=== PATIENT | female | born 1930 | race Caucasian/White ===

== ENCOUNTER 2016-07-29 12:59 | Outpatient (CLI) | payer MEDICARE, BC | END 2016-07-29 13:00 | disposition home or self-care (01) | DX: I48.91 Unspecified atrial fibrillation (principal); Z79.01 Long term (current) use of anticoagulants ==

== ENCOUNTER 2016-08-04 10:07 | Outpatient (CLI) | payer MEDICARE, BC | END 2016-08-04 10:08 | disposition home or self-care (01) | DX: C50.912 Malignant neoplasm of unspecified site of left female breast (principal) ==

== ENCOUNTER 2016-09-01 13:38 | Outpatient (CLI) | payer MEDICARE, BC | END 2016-09-01 13:39 | disposition home or self-care (01) | DX: Z79.01 Long term (current) use of anticoagulants (principal); I48.91 Unspecified atrial fibrillation ==

== ENCOUNTER 2016-09-16 11:13 | Outpatient (CLI) | payer MEDICARE, BC | END 2016-09-16 11:14 | disposition home or self-care (01) | DX: I48.91 Unspecified atrial fibrillation (principal); Z79.01 Long term (current) use of anticoagulants ==

== ENCOUNTER 2016-09-19 14:26 | Outpatient (CLI) | payer MEDICARE, BC | END 2016-09-19 14:27 | disposition home or self-care (01) | DX: R60.9 Edema, unspecified (principal) ==

== ENCOUNTER 2016-09-19 15:01 | Outpatient (CLI) | payer MEDICARE, BC | END 2016-09-19 15:02 | disposition home or self-care (01) | DX: R60.9 Edema, unspecified (principal) ==

== ENCOUNTER 2016-09-26 13:42 | Outpatient (CLI) | payer MEDICARE, BC | END 2016-09-26 13:43 | disposition home or self-care (01) | DX: M25.561 Pain in right knee (principal); R60.9 Edema, unspecified; Z96.651 Presence of right artificial knee joint ==

== ENCOUNTER 2016-10-06 11:26 | Outpatient (CLI) | payer MEDICARE, BC | END 2016-10-06 23:59 | DX: L03.115 Cellulitis of right lower limb (principal); L08.9 Local infection of the skin and subcutaneous tissue, unspecified; Z79.01 Long term (current) use of anticoagulants; E11.65 Type 2 diabetes mellitus with hyperglycemia; M25.561 Pain in right knee ==

== ENCOUNTER 2016-10-08 13:29 | Outpatient (CLI) | payer MEDICARE, BC | END 2016-10-08 13:30 | disposition home or self-care (01) | DX: I48.91 Unspecified atrial fibrillation (principal); Z79.01 Long term (current) use of anticoagulants ==

== ENCOUNTER 2016-10-13 08:00 | Outpatient (CLI) | payer MEDICARE, BC | END 2016-10-13 23:59 | DX: Z79.01 Long term (current) use of anticoagulants (principal); I48.91 Unspecified atrial fibrillation ==

== ENCOUNTER 2016-10-16 10:34 | Outpatient (CLI) | payer MEDICARE, BC | END 2016-10-16 10:35 | disposition home or self-care (01) | DX: M19.071 Primary osteoarthritis, right ankle and foot (principal); M21.41 Flat foot [pes planus] (acquired), right foot; M14.671 Charcot's joint, right ankle and foot; Z96.651 Presence of right artificial knee joint; M25.561 Pain in right knee; Z79.01 Long term (current) use of anticoagulants; I48.91 Unspecified atrial fibrillation ==

== ENCOUNTER 2016-10-16 11:13 | Outpatient (CLI) | payer MEDICARE, BC | END 2016-10-16 11:14 | disposition home or self-care (01) | DX: M25.561 Pain in right knee (principal); M14.671 Charcot's joint, right ankle and foot; Z79.01 Long term (current) use of anticoagulants; Z96.651 Presence of right artificial knee joint; I48.91 Unspecified atrial fibrillation ==

== ENCOUNTER 2016-10-22 13:21 | Outpatient (CLI) | payer MEDICARE, BC | END 2016-10-22 13:22 | disposition home or self-care (01) | DX: I48.91 Unspecified atrial fibrillation (principal); Z79.01 Long term (current) use of anticoagulants ==

== ENCOUNTER 2016-10-29 12:49 | Outpatient (CLI) | payer MEDICARE, BC | END 2016-10-29 12:50 | disposition home or self-care (01) | DX: Z79.01 Long term (current) use of anticoagulants (principal); I48.91 Unspecified atrial fibrillation ==

== ENCOUNTER 2016-11-19 08:00 | Outpatient (CLI) | payer MEDICARE, BC | END 2016-11-19 08:01 | disposition home or self-care (01) | DX: Z79.01 Long term (current) use of anticoagulants (principal); I48.91 Unspecified atrial fibrillation ==

== ENCOUNTER 2016-11-26 13:30 | Outpatient (CLI) | payer MEDICARE, BC | END 2016-11-26 13:31 | disposition home or self-care (01) | DX: I48.91 Unspecified atrial fibrillation (principal); Z79.01 Long term (current) use of anticoagulants ==

== ENCOUNTER 2016-12-03 13:15 | Outpatient (CLI) | payer MEDICARE, BC | END 2016-12-03 13:16 | disposition home or self-care (01) | LOC: LAB.F 13:15 | PROVIDERS: ATTEND Family Medicine | DX: I48.91 Unspecified atrial fibrillation (principal); Z79.01 Long term (current) use of anticoagulants | CPT/HCPCS: 85610 ==

== ENCOUNTER 2016-12-17 13:38 | Outpatient (CLI) | payer MEDICARE, BC | END 2016-12-17 13:39 | disposition home or self-care (01) | LOC: LAB.F 13:38 | PROVIDERS: ATTEND Family Medicine | DX: I48.91 Unspecified atrial fibrillation (principal); Z79.01 Long term (current) use of anticoagulants | CPT/HCPCS: 85610 ==

== ENCOUNTER 2017-01-19 11:10 | Outpatient (CLI) | payer MEDICARE, BC | END 2017-01-19 11:11 | disposition home or self-care (01) | LOC: LAB.F 11:10 | PROVIDERS: ATTEND Family Medicine | DX: I48.91 Unspecified atrial fibrillation (principal); Z79.01 Long term (current) use of anticoagulants | CPT/HCPCS: 85610 ==

== ENCOUNTER 2017-02-02 11:21 | Outpatient (CLI) | payer MEDICARE, BC | END 2017-02-02 11:22 | disposition home or self-care (01) | LOC: LAB.F 11:21 | PROVIDERS: ATTEND Family Medicine | DX: Z79.01 Long term (current) use of anticoagulants (principal) | CPT/HCPCS: 85610 ==

== ENCOUNTER 2017-02-09 12:51 | Outpatient (CLI) | payer MEDICARE, BC | END 2017-02-09 12:52 | disposition home or self-care (01) | LOC: LAB.F 12:51 | PROVIDERS: ATTEND Family Medicine | DX: I48.91 Unspecified atrial fibrillation (principal); Z79.01 Long term (current) use of anticoagulants | CPT/HCPCS: 85610 ==

== ENCOUNTER 2017-03-02 13:41 | Outpatient (CLI) | payer MEDICARE, BC | END 2017-03-02 13:42 | disposition home or self-care (01) | LOC: LAB 13:41 → LAB.F 13:42 | PROVIDERS: ATTEND Physician Assistant Medical | DX: I48.91 Unspecified atrial fibrillation (principal) | CPT/HCPCS: 85610 ==

== ENCOUNTER 2017-03-25 13:19 | Outpatient (CLI) | payer MEDICARE, BC | END 2017-03-25 13:20 | disposition home or self-care (01) | LOC: LAB.F 13:19 | PROVIDERS: ATTEND Physician Assistant Medical | DX: I48.91 Unspecified atrial fibrillation (principal) | CPT/HCPCS: 85610 ==

== ENCOUNTER 2017-04-08 12:44 | Outpatient (CLI) | payer MEDICARE, BC | END 2017-04-08 12:45 | disposition home or self-care (01) | LOC: LAB.F 12:44 | PROVIDERS: ATTEND Physician Assistant Medical | DX: I48.91 Unspecified atrial fibrillation (principal) | CPT/HCPCS: 85610 ==

== ENCOUNTER 2017-04-22 13:21 | Outpatient (CLI) | payer MEDICARE, BC | END 2017-04-22 13:22 | disposition home or self-care (01) | LOC: LAB.F 13:21 | PROVIDERS: ATTEND Physician Assistant Medical | DX: I48.91 Unspecified atrial fibrillation (principal) | CPT/HCPCS: 85610 ==

== ENCOUNTER 2017-05-06 13:16 | Outpatient (CLI) | payer MEDICARE, BC | END 2017-05-06 13:17 | disposition home or self-care (01) | LOC: LAB.F 13:16 | PROVIDERS: ATTEND Physician Assistant Medical | DX: I48.91 Unspecified atrial fibrillation (principal) | CPT/HCPCS: 85610 ==

== ENCOUNTER 2017-05-13 13:43 | Outpatient (CLI) | payer MEDICARE, BC | END 2017-05-13 13:44 | disposition home or self-care (01) | LOC: LAB.F 13:43 | PROVIDERS: ATTEND Family Medicine | DX: I48.91 Unspecified atrial fibrillation (principal) | CPT/HCPCS: 85610 ==

== ENCOUNTER 2017-05-18 10:10 | Outpatient (CLI) | payer MEDICARE, BC | END 2017-05-18 10:11 | disposition home or self-care (01) | LOC: LAB.F 10:10 | PROVIDERS: ATTEND Physician Assistant Medical | DX: I48.91 Unspecified atrial fibrillation (principal) | CPT/HCPCS: 85610 ==

== ENCOUNTER 2017-06-16 10:59 | Outpatient (CLI) | payer MEDICARE, BC | END 2017-06-16 11:00 | disposition home or self-care (01) | LOC: LAB.F 10:59 | PROVIDERS: ATTEND Physician Assistant Medical | DX: I48.91 Unspecified atrial fibrillation (principal) | CPT/HCPCS: 85610 ==

== ENCOUNTER 2017-08-17 10:49 | Outpatient (CLI) | payer MEDICARE, BC ==
--- NOTE | 2017-08-17 15:00 | Mammography Report ---
DATE OF SERVICE: 08/17/2017 DIGITAL DIAGNOSTIC BILATERAL MAMMOGRAM: 08/17/2017 CLINICAL INDICATION: History of left breast cancer status post lumpectomy and radiation therapy. TECHNIQUE: Bilateral CC and MLO views, left true lateral view. Views are limited by patient's general condition and difficulty with positioning. COMPARISON: 08/04/2016, 06/18/2015, 12/04/2014, 06/12/2014, 09/19/2013, 2012, 11/30/2006. FINDINGS: The breasts demonstrate scattered fibroglandular densities bilaterally. Postoperative seroma in the left upper outer quadrant is stable. Post- radiation changes are stable. No suspicious masses, clustered microcalcifications, or regions of architectural distortion are identified. IMPRESSION: BENIGN FINDINGS. RECOMMENDATION: The patient can return to routine annual screening unless otherwise clinically indicated. BIRADS CATEGORY 2 - BENIGN FINDINGS. STANDARD QUALIFYING STATEMENTS: 1. This examination was reviewed with the aid of Computer-Aided Detection (CAD) . 2. A negative or benign imaging report should not delay biopsy if clinically suspicious findings are present. Consider surgical consultation if warranted. More than 5 % of cancers are not identified by imaging. 3. Dense breasts may obscure an underlying neoplasm. TD: 08/17/2017 15:59 TREVER
== END 2017-08-17 10:50 | disposition home or self-care (01) ==
LOC: DI 10:49
PROVIDERS: ATTEND Internal Medicine Hematology & Oncology
DX: C50.912 Malignant neoplasm of unspecified site of left female breast (principal)
CPT/HCPCS: 77066

== ENCOUNTER 2017-08-26 13:06 | Outpatient (CLI) | payer MEDICARE, BC | END 2017-08-26 13:07 | disposition home or self-care (01) | LOC: LAB.F 13:06 | PROVIDERS: ATTEND Physician Assistant Medical | DX: I48.91 Unspecified atrial fibrillation (principal) | CPT/HCPCS: 85610 ==

== ENCOUNTER 2017-09-01 08:00 | Outpatient (CLI) | payer MEDICARE, BC | END 2017-09-01 08:01 | disposition home or self-care (01) | LOC: LAB.F 08:00 | PROVIDERS: ATTEND Physician Assistant Medical | DX: I48.91 Unspecified atrial fibrillation (principal) | CPT/HCPCS: 85610 ==

== ENCOUNTER 2017-09-28 13:49 | Outpatient (CLI) | payer MEDICARE, BC | END 2017-09-28 13:50 | disposition home or self-care (01) | LOC: LAB.F 13:49 | PROVIDERS: ATTEND Physician Assistant Medical | DX: I48.91 Unspecified atrial fibrillation (principal) | CPT/HCPCS: 85610 ==

== ENCOUNTER 2017-10-07 12:53 | Outpatient (CLI) | payer MEDICARE, BC | END 2017-10-07 12:54 | disposition home or self-care (01) | LOC: LAB.F 12:53 | PROVIDERS: ATTEND Physician Assistant Medical | DX: I48.91 Unspecified atrial fibrillation (principal) | CPT/HCPCS: 85610 ==

== ENCOUNTER 2017-10-21 13:16 | Outpatient (CLI) | payer MEDICARE, BC | END 2017-10-21 13:17 | disposition home or self-care (01) | LOC: LAB.F 13:16 | PROVIDERS: ATTEND Physician Assistant Medical | DX: I48.91 Unspecified atrial fibrillation (principal) | CPT/HCPCS: 85610 ==

== ENCOUNTER 2017-11-02 08:00 | Outpatient (CLI) | payer MEDICARE, BC | END 2017-11-02 08:01 | disposition home or self-care (01) | LOC: LAB.F 08:00 | PROVIDERS: ATTEND Physician Assistant Medical | DX: I48.91 Unspecified atrial fibrillation (principal) | CPT/HCPCS: 85610 ==

== ENCOUNTER 2017-11-27 13:47 | Outpatient (CLI) | payer MEDICARE, BC | END 2017-11-27 13:48 | disposition home or self-care (01) | LOC: LAB.F 13:47 | PROVIDERS: ATTEND Internal Medicine | DX: I48.91 Unspecified atrial fibrillation (principal) | CPT/HCPCS: 85610 ==

== ENCOUNTER 2017-12-10 08:44 | Outpatient (CLI) | payer MEDICARE, BC ==
[2017-12-10] MEDS ORDERED: IOPAMIDOL-300 50 ML VIAL ONE (09:00)
--- NOTE | 2017-12-10 13:07 | CT Report ---
CT ABDOMEN WITHOUT CONTRAST: 12/10/2017 CLINICAL INDICATION: Abdominal wall mass. TECHNIQUE: Axial CT images of the abdomen were obtained without intravenous contrast. COMPARISON: Diagnostic mammogram 08/17/2017. FINDINGS: Limited evaluation of the lung bases demonstrates a large hiatal hernia and dependent atelectasis. Postoperative seroma in the left breast appears unchanged. No abdominal wall hernia is identified. Cholelithiasis is present. An inferior vena cava filter is noted. Allowing for the lack of intravenous contrast enhancement, the liver, spleen, pancreas and kidneys appear unremarkable. The adrenal glands are unremarkable. No bowel dilatation, free gas, or free fluid is present. Osseous structures demonstrate degenerative changes. IMPRESSION: POSTOPERATIVE SEROMA IN THE LEFT BREAST. NO OTHER EVIDENT LUMP IS IDENTIFIED. CT DOSE REDUCTION STATEMENT In accordance with CT protocol optimization, one or more of the following dose reduction techniques were utilized for this exam: automated exposure control, adjustment of mA and/or KV based on patient size, or use of iterative reconstructive technique. TD: 12/10/2017 13:00
== END 2017-12-10 08:45 | disposition home or self-care (01) ==
LOC: DI 08:44
PROVIDERS: ATTEND Internal Medicine
DX: R22.2 Localized swelling, mass and lump, trunk (principal); N64.89 Other specified disorders of breast
CPT/HCPCS: 74150; Q9967

== ENCOUNTER 2017-12-25 11:01 | Outpatient (CLI) | payer MEDICARE, BC | END 2017-12-25 11:02 | disposition home or self-care (01) | LOC: LAB.F 11:01 | PROVIDERS: ATTEND Internal Medicine | DX: I48.91 Unspecified atrial fibrillation (principal) | CPT/HCPCS: 85610 ==

== ENCOUNTER 2018-01-06 12:12 | Outpatient (CLI) | payer MEDICARE, BC | END 2018-01-06 12:13 | disposition home or self-care (01) | LOC: LAB.F 12:12 | PROVIDERS: ATTEND Internal Medicine | DX: I48.91 Unspecified atrial fibrillation (principal) | CPT/HCPCS: 85610 ==

== ENCOUNTER 2018-02-03 12:56 | Outpatient (CLI) | payer MEDICARE, BC | END 2018-02-03 12:57 | disposition home or self-care (01) | LOC: LAB.F 12:56 | PROVIDERS: ATTEND Internal Medicine | DX: I48.91 Unspecified atrial fibrillation (principal) | CPT/HCPCS: 85610 ==

== ENCOUNTER 2018-02-15 12:30 | Outpatient (CLI) | payer MEDICARE, BC | END 2018-02-15 12:31 | disposition home or self-care (01) | LOC: LAB.F 12:30 | PROVIDERS: ATTEND Internal Medicine | DX: I48.91 Unspecified atrial fibrillation (principal) | CPT/HCPCS: 85610 ==

== ENCOUNTER 2018-03-16 13:55 | Outpatient (CLI) | payer MEDICARE, BC ==
[2018-03-16 17:21] LABS: BASOPHILS % (AUTO) 0.9 %; EOSINOPHILS # (AUTO) 0.1 10^3/uL (0.0-0.7); EOSINOPHILS % (AUTO) 1.4 %; HGB - HEMOGLOBIN 12.2 g/dL (12.0-16.0); LYMPHOCYTES % (AUTO) 23.3 %; MEAN CORPUSCULAR HEMOGLOBIN 28.9 pg (27.0-31.0); MEAN CORPUSCULAR HGB CONC 32.9 g/dL (32.0-36.0); MEAN CORPUSCULAR VOLUME 87.9 fL (81.0-99.0); MEAN PLATELET VOLUME 8.5 fL (7.9-10.8); MONOCYTES # (AUTO) 0.4 10^3/uL (0.0-1.0); MONOCYTES % (AUTO) 10.3 %; NEUTROPHILS # (AUTO) 2.8 10^3/uL (1.5-6.6); NEUTROPHILS % (AUTO) 64.1 %; PLT - PLATELET COUNT 176 10^3/uL (130-450); RED BLOOD COUNT 4.21 10^6/uL (4.20-5.40); RED CELL DISTRIBUTION WIDTH 15.6 % (12.0-15.0); WHITE BLOOD COUNT 4.4 x10^3/uL (4.8-10.8)
[2018-03-16 17:36] LABS: ALBUMIN 3.3 g/dL (3.2-5.5); ALBUMIN/GLOBULIN RATIO 0.9 (1.0-2.2); BILIRUBIN,TOTAL 0.8 mg/dL (0.2-1.0); CREATININE 0.7 mg/dL (0.4-1.0); TOTAL PROTEIN 6.9 g/dL (6.7-8.2)
== END 2018-03-16 13:56 | disposition home or self-care (01) ==
LOC: LAB.F 13:55
PROVIDERS: ATTEND Physician Assistant Medical
DX: I48.91 Unspecified atrial fibrillation (principal); I10 Essential (primary) hypertension
CPT/HCPCS: 36415; 80053; 85025; 85610

== ENCOUNTER 2018-03-24 13:06 | Outpatient (CLI) | payer MEDICARE, BC | END 2018-03-24 13:07 | disposition home or self-care (01) | LOC: LAB.F 13:06 | PROVIDERS: ATTEND Internal Medicine | DX: I48.91 Unspecified atrial fibrillation (principal) | CPT/HCPCS: 85610 ==

== ENCOUNTER 2018-03-31 12:47 | Outpatient (CLI) | payer MEDICARE, BC | END 2018-03-31 12:48 | disposition home or self-care (01) | LOC: LAB.F 12:47 | PROVIDERS: ATTEND Internal Medicine | DX: I48.91 Unspecified atrial fibrillation (principal) | CPT/HCPCS: 85610 ==

== ENCOUNTER 2018-04-21 13:19 | Outpatient (CLI) | payer MEDICARE, BC | END 2018-04-21 13:20 | disposition home or self-care (01) | LOC: LAB.F 13:19 | PROVIDERS: ATTEND Internal Medicine | DX: I48.91 Unspecified atrial fibrillation (principal) | CPT/HCPCS: 85610 ==

== ENCOUNTER 2018-05-14 12:51 | Outpatient (CLI) | payer MEDICARE, BC | END 2018-05-14 12:52 | disposition home or self-care (01) | LOC: DI 12:51 | PROVIDERS: ATTEND Physician Assistant Medical | DX: I48.91 Unspecified atrial fibrillation (principal); R01.1 Cardiac murmur, unspecified; I08.3 Combined rheumatic disorders of mitral, aortic and tricuspid valves | CPT/HCPCS: 93306 ==

== ENCOUNTER 2018-05-19 13:14 | Outpatient (CLI) | payer MEDICARE, BC | END 2018-05-19 13:15 | disposition home or self-care (01) | LOC: LAB.F 13:14 | PROVIDERS: ATTEND Internal Medicine | DX: I48.91 Unspecified atrial fibrillation (principal) | CPT/HCPCS: 85610 ==

== ENCOUNTER 2018-06-23 12:57 | Outpatient (CLI) | payer MEDICARE, BC | END 2018-06-23 12:58 | disposition home or self-care (01) | LOC: LAB.F 12:57 | PROVIDERS: ATTEND Internal Medicine | DX: I48.91 Unspecified atrial fibrillation (principal) | CPT/HCPCS: 85610 ==

== ENCOUNTER 2018-07-08 13:24 | Outpatient (CLI) | payer MEDICARE, BC | END 2018-07-08 13:25 | disposition home or self-care (01) | LOC: LAB.F 13:24 | PROVIDERS: ATTEND Internal Medicine | DX: I48.91 Unspecified atrial fibrillation (principal) | CPT/HCPCS: 85610 ==

== ENCOUNTER 2018-08-04 13:04 | Outpatient (CLI) | payer MEDICARE, BC | END 2018-08-04 13:05 | disposition home or self-care (01) | LOC: LAB.F 13:04 | PROVIDERS: ATTEND Internal Medicine | DX: I48.91 Unspecified atrial fibrillation (principal) | CPT/HCPCS: 85610 ==

== ENCOUNTER 2018-09-10 13:36 | Outpatient (CLI) | payer MEDICARE, BC | END 2018-09-10 13:37 | disposition home or self-care (01) | LOC: LAB.F 13:36 | PROVIDERS: ATTEND Internal Medicine | DX: I48.91 Unspecified atrial fibrillation (principal) | CPT/HCPCS: 85610 ==

== ENCOUNTER 2018-10-06 12:56 | Outpatient (CLI) | payer MEDICARE, BC | END 2018-10-06 12:57 | disposition home or self-care (01) | LOC: LAB.F 12:56 | PROVIDERS: ATTEND Internal Medicine | DX: I48.91 Unspecified atrial fibrillation (principal) | CPT/HCPCS: 85610 ==

== ENCOUNTER 2018-10-11 11:06 | Outpatient (CLI) | payer MEDICARE, BC | END 2018-10-11 11:07 | disposition home or self-care (01) | LOC: LAB.F 11:06 | PROVIDERS: ATTEND Internal Medicine | DX: I48.91 Unspecified atrial fibrillation (principal) | CPT/HCPCS: 85610 ==

== ENCOUNTER 2018-10-20 13:05 | Outpatient (CLI) | payer MEDICARE, BC | END 2018-10-20 13:06 | disposition home or self-care (01) | LOC: LAB.F 13:05 | PROVIDERS: ATTEND Internal Medicine | DX: I48.91 Unspecified atrial fibrillation (principal) | CPT/HCPCS: 85610 ==

== ENCOUNTER 2018-11-01 13:04 | Outpatient (CLI) | payer MEDICARE, BC | END 2018-11-01 13:05 | disposition home or self-care (01) | LOC: LAB.F 13:04 | PROVIDERS: ATTEND Internal Medicine | DX: I48.91 Unspecified atrial fibrillation (principal) | CPT/HCPCS: 85610 ==

== ENCOUNTER 2018-11-22 10:39 | Outpatient (CLI) | payer MEDICARE, BC, MEDICAID ==
--- NOTE | 2018-11-22 12:44 | Ultrasound Report ---
Reason: L BREAST CANCER Procedure Date: 11/22/2018 Accession Number: [id number] / [id number] Procedure: US - Breast Unilateral Limited CPT Code: FULL RESULT: EXAM: Breast Unilateral Limited DATE: 11/22/2018 11:40 AM CLINICAL HISTORY: History of L BREAST CANCER. Palpable left upper outer quadrant mass; previous mammogram demonstrates postoperative seroma in this location. COMPARISON: Mammogram 08/17/2017 TECHNIQUE: Real-time ultrasound examination was performed by the technologist of the left upper outer quadrant palpable abnormality with saved static images reviewed. Color Doppler was employed. FINDINGS: Corresponding to the palpable abnormality is a 6.9 x 4 x 6.8 cm complex uniform hypoechoic well-circumscribed collection in the left breast 1:00 position 8 cm from the nipple. Findings would be consistent with an organized seroma. IMPRESSION: Findings by ultrasound most consistent with a left breast upper outer quadrant seroma. RECOMMENDATION: Suggest follow-up now by bilateral diagnostic mammography. Patient's last mammogram was performed 15 months ago. BI-RADS CATEGORY: 2: BENIGN FINDINGS
== END 2018-11-22 10:40 | disposition home or self-care (01) ==
LOC: DI 10:39
PROVIDERS: ATTEND Internal Medicine Hematology & Oncology
DX: N63.21 Unspecified lump in the left breast, upper outer quadrant (principal)
CPT/HCPCS: 76642

== ENCOUNTER 2018-12-03 11:54 | Outpatient (CLI) | payer MEDICARE, MEDICAID | END 2018-12-03 11:55 | disposition home or self-care (01) | LOC: LAB.F 11:54 | PROVIDERS: ATTEND Internal Medicine | DX: I48.91 Unspecified atrial fibrillation (principal) | CPT/HCPCS: 85610 ==

== ENCOUNTER 2019-01-03 11:30 | Outpatient (CLI) | payer MEDICARE, MEDICAID, BC | END 2019-01-03 11:31 | disposition home or self-care (01) | LOC: LAB.F 11:30 | PROVIDERS: ATTEND Internal Medicine | DX: I48.91 Unspecified atrial fibrillation (principal) | CPT/HCPCS: 85610 ==

== ENCOUNTER 2019-01-13 08:00 | Outpatient (CLI) | payer MEDICARE, MEDICAID, BC | END 2019-01-13 23:59 | disposition home or self-care (01) | LOC: LAB.F 08:00 | PROVIDERS: ATTEND Internal Medicine | DX: I48.91 Unspecified atrial fibrillation (principal) | CPT/HCPCS: 85610 ==

== ENCOUNTER 2019-01-20 13:23 | Outpatient (CLI) | payer MEDICARE, BC, MEDICAID | END 2019-01-20 13:24 | disposition home or self-care (01) | LOC: LAB.F 13:23 | PROVIDERS: ATTEND Internal Medicine | DX: I48.91 Unspecified atrial fibrillation (principal) | CPT/HCPCS: 85610 ==

== ENCOUNTER 2019-01-28 11:32 | Outpatient (CLI) | payer MEDICARE, MEDICAID, BC | END 2019-01-28 11:33 | disposition home or self-care (01) | LOC: LAB.S 11:32 | PROVIDERS: ATTEND Internal Medicine | DX: I48.91 Unspecified atrial fibrillation (principal) | CPT/HCPCS: 85610 ==

== ENCOUNTER 2019-02-04 11:05 | Outpatient (CLI) | payer MEDICARE, MEDICAID, BC | END 2019-02-04 11:06 | disposition home or self-care (01) | LOC: LAB.S 11:05 | PROVIDERS: ATTEND Internal Medicine | DX: I48.91 Unspecified atrial fibrillation (principal) | CPT/HCPCS: 85610 ==

== ENCOUNTER 2019-02-11 10:52 | Outpatient (CLI) | payer MEDICARE, MEDICAID, BC | END 2019-02-11 10:53 | disposition home or self-care (01) | LOC: LAB.S 10:52 | PROVIDERS: ATTEND Internal Medicine | DX: I48.91 Unspecified atrial fibrillation (principal) | CPT/HCPCS: 85610 ==

== ENCOUNTER 2019-02-25 | Outpatient (CLI) | payer MEDICARE, MEDICAID, BC | END 2019-02-25 11:24 | disposition home or self-care (01) | DX: I48.91 Unspecified atrial fibrillation (principal) ==

== ENCOUNTER 2019-03-07 11:34 | Outpatient (CLI) | payer MEDICARE, BC, MEDICAID | END 2019-03-07 11:35 | disposition home or self-care (01) | LOC: LAB.S 11:34 | PROVIDERS: ATTEND Internal Medicine | DX: I48.91 Unspecified atrial fibrillation (principal) | CPT/HCPCS: 85610 ==

== ENCOUNTER 2019-03-14 12:53 | Outpatient (CLI) | payer MEDICARE, MEDICAID, BC | END 2019-03-14 12:54 | disposition home or self-care (01) | LOC: LAB.S 12:53 | PROVIDERS: ATTEND Internal Medicine | DX: I48.91 Unspecified atrial fibrillation (principal) | CPT/HCPCS: 85610 ==

== ENCOUNTER 2019-03-29 11:38 | Outpatient (CLI) | payer MEDICARE, BC, MEDICAID | END 2019-03-29 23:59 | disposition home or self-care (01) | LOC: LAB.S 11:38 | PROVIDERS: ATTEND Internal Medicine | DX: I48.91 Unspecified atrial fibrillation (principal) | CPT/HCPCS: 85610 ==

== ENCOUNTER 2019-04-05 14:05 | Outpatient (CLI) | payer MEDICARE, BC, MEDICAID | END 2019-04-05 14:06 | disposition home or self-care (01) | LOC: LAB.S 14:05 | PROVIDERS: ATTEND Internal Medicine | DX: I48.91 Unspecified atrial fibrillation (principal) | CPT/HCPCS: 85610 ==

== ENCOUNTER 2019-04-19 12:15 | Outpatient (CLI) | payer MEDICARE, BC, MEDICAID | END 2019-04-19 12:16 | disposition home or self-care (01) | LOC: LAB.S 12:15 | PROVIDERS: ATTEND Internal Medicine | DX: I48.91 Unspecified atrial fibrillation (principal) | CPT/HCPCS: 85610 ==

== ENCOUNTER 2019-04-26 10:59 | Outpatient (CLI) | payer MEDICARE, BC, MEDICAID | END 2019-04-26 11:00 | disposition home or self-care (01) | LOC: LAB.S 10:59 | PROVIDERS: ATTEND Internal Medicine | DX: I48.91 Unspecified atrial fibrillation (principal) | CPT/HCPCS: 85610 ==

== ENCOUNTER 2019-05-02 13:28 | Outpatient (CLI) | payer MEDICARE, BC, MEDICAID | END 2019-05-02 13:29 | disposition home or self-care (01) | LOC: LAB.S 13:28 | PROVIDERS: ATTEND Internal Medicine | DX: I48.91 Unspecified atrial fibrillation (principal) | CPT/HCPCS: 85610 ==

== ENCOUNTER 2019-05-26 13:30 | Outpatient (CLI) | payer MEDICARE, BC, MEDICAID | END 2019-05-26 13:31 | disposition home or self-care (01) | LOC: LAB.S 13:30 | PROVIDERS: ATTEND Internal Medicine | DX: I48.91 Unspecified atrial fibrillation (principal) | CPT/HCPCS: 85610 ==

== ENCOUNTER 2019-06-02 12:35 | Outpatient (CLI) | payer MEDICARE, BC, MEDICAID | END 2019-06-02 23:59 | disposition home or self-care (01) | LOC: LAB.S 12:35 | PROVIDERS: ATTEND Internal Medicine | DX: I48.91 Unspecified atrial fibrillation (principal) | CPT/HCPCS: 85610 ==

== ENCOUNTER 2019-06-09 10:28 | Outpatient (CLI) | payer MEDICARE, BC, MEDICAID ==
--- NOTE | 2019-06-09 15:41 | Ultrasound Report ---
Reason: PAIN IN LOWER ABD Procedure Date: 06/09/2019 Accession Number: [id number] / [id number] Procedure: US - Abdomen Complete CPT Code: Final Report FULL RESULT: EXAM: ABDOMEN ULTRASOUND EXAM DATE: 06/09/2019 01:14 PM. CLINICAL HISTORY: Pain in lower abdomen. COMPARISON: ABDOMEN COMPLETE 02/23/2016 8:29 AM. TECHNIQUE: Real-time scanning was performed with static images obtained. FINDINGS: Liver: The portal triads are echogenic. There is diffuse intrahepatic biliary dilatation. Multiple tiny hyperechoic foci are seen in the liver, which may represent small calcifications. The liver echotexture is mildly coarsened. The liver measures 15.5 cm in length. Main portal vein flow: Hepatopetal. Gallbladder: Layering sludge is seen in the distended gallbladder. There is a large shadowing stone in the gallbladder fundus. No gallbladder wall thickening or pericholecystic fluid is seen. The sonographic Patel's sign was reported as negative. Biliary System: Common bile duct is dilated measuring up to 16 mm. It tapers towards the region of the pancreatic head. There is intrahepatic and extrahepatic biliary dilatation without intraluminal filling defects. Pancreas: Not visible. Kidneys: Right: 11.5 cm longitudinally. No contour-deforming mass, stones, or hydronephrosis is seen. Left: 10.8 cm longitudinally. No contour-deforming mass or hydronephrosis is seen. A 6 mm hyperechoic foci in the midportion of the kidney may represent a small calculus. Spleen: 8.0 x 4.1 x 3.8 cm. Multiple punctate echogenic foci are seen throughout the spleen, likely representing calcifications. Aorta and Inferior Vena Cava: The abdominal aorta is ectatic and measures 1.5 cm in diameter throughout its course. The visible portions of the inferior vena cava are within normal limits. Other: None. IMPRESSION: 1. Large calcified gallstone and large amount of layering sludge in the distended gallbladder without sonographic evidence of acute cholecystitis. 2. Diffuse intrahepatic and extrahepatic biliary dilatation without intraluminal filling defects to suggest an obstruction. 3. Echogenic portal triads consistent with hepatitis. 4. Innumerable tiny punctate echogenic foci throughout the liver are of unclear etiology. Given the presence of multiple larger echogenic foci throughout the spleen, these may represent calcified granulomas. Consider MRI abdomen with and without contrast for further evaluation. 5. Ectatic abdominal aorta without aneurysmal dilatation. RADIA
--- NOTE | 2019-06-09 21:55 | Ultrasound Report ---
Reason: PAIN IN LOWER ABD Procedure Date: 06/09/2019 Accession Number: [id number] / [id number] Procedure: US - Pelvic Complete CPT Code: Final Report FULL RESULT: EXAM: PELVIC ULTRASOUND EXAM DATE: 06/09/2019 01:14 PM. CLINICAL HISTORY: Lower abdominal pain. COMPARISON: CT scan from 09/23/2006. TECHNIQUE: Realtime transabdominal pelvic scan performed to identify the uterus and adnexa and as an overview of other pelvic structures, with static image documentation. FINDINGS: The study is limited secondary to patient's body habitus and discomfort. Uterus: 6.6 x 2.6 x 3.6 cm, volume 32.3 cc. Anteverted position. Normal overall size and echotexture. Masses: Probable intramural fibroid is noted measuring 2.6 x 2.0 x 1.9 cm. Endometrium: Not well seen. Cervix: Limited visualization. Right Ovary: Obscured by bowel gas. Left Ovary: Obscured by bowel gas. Free Fluid: None. Other: None. IMPRESSION: 1. Limited exam secondary to patient's body habitus and discomfort secondary to full bladder, with limited visualization of structures as above. 2. Probable intramural fibroid is noted measuring up to 2.6 cm. 3. No free fluid seen. RADIA
== END 2019-06-09 10:29 | disposition home or self-care (01) ==
LOC: DI 10:28
PROVIDERS: ATTEND Internal Medicine Hematology & Oncology
DX: K80.20 Calculus of gallbladder without cholecystitis without obstruction (principal); I77.811 Abdominal aortic ectasia; R16.0 Hepatomegaly, not elsewhere classified; C50.919 Malignant neoplasm of unspecified site of unspecified female breast; R10.30 Lower abdominal pain, unspecified
CPT/HCPCS: 76700; 76856

== ENCOUNTER 2019-06-15 08:20 | Outpatient (CLI) | payer MEDICARE, BC, MEDICAID | END 2019-06-15 08:21 | disposition EMS.NT | LOC: EMS 08:20 | PROVIDERS: ATTEND Surgery | DX: R10.11 Right upper quadrant pain (principal) ==

== ENCOUNTER 2019-06-21 13:27 | Inpatient (IN) | payer MEDICARE, BC, MEDICAID ==
[2019-06-21] MEDS ORDERED: ACETAMINOPHEN 325 MG TABLET PO PRN (17:17)
[2019-06-21] MEDS ORDERED: VANCOMYCIN PER PHARMACY 100 GM in SODIUM CHLORIDE 0.9% 250 ML IV SCH (18:00)
[2019-06-21] MEDS: ACETAMINOPHEN 325 MG TABLET PO PRN ×2 (18:35→23:42)
[2019-06-21] MEDS: oxyCODONE 5 MG TABLET PO PRN ×2 (18:36→23:41)
[2019-06-21] MEDS ORDERED: CALCIUM CARBONATE CHEW 500 MG TABLET PO PRN (18:44)
[2019-06-21] MEDS ORDERED: ONDANSETRON ODT 4 MG TABLET TL PRN (18:44)
[2019-06-21] MEDS ORDERED: SODIUM CHLORIDE FLUSH 0.9% 10 ML SYRINGE ONE (20:09)
[2019-06-21] MEDS: PIPERACILLIN/TAZOBACTAM 3.375 GM in SODIUM CHLORIDE 0.9% MINIBAG 100 ML IV SCH (20:18)
[2019-06-21] MEDS: SIMETHICONE CHEW 80 MG TABLET PO PRN (20:51)
--- NOTE | 2019-06-21 21:56 | PROVIDER PROGRESS NOTE ---
Subjective - General Admit Date: 06/21/19 Procedure Date: 06/16/19 Post Op Days: 5 - Review of Systems Gastrointestinal: positive: Other (States she is now haing BM's) Objective - Patient Data Reviewed Vital Signs: Yes Intake & Output: Intake and Output Totals x24h 06/19/19 06/20/19 06/21/19 23:59 23:59 23:59 Intake Total 100 Balance 100 - Current Medications Current Medications: Current Medications Generic Name Dose Route Start Last Admin Trade Name Freq PRN Reason Stop Dose Admin Acetaminophen 650 mg 06/21/19 17:17 06/21/19 18:35 Tylenol PO 650 mg Q4HR PRN Administration Pain 1 to 4 or Fever > 38C Piperacillin Sod/Tazobactam 100 mls @ 200 mls/hr 06/21/19 20:00 06/21/19 20:48 Sod 3.375 gm/ Sodium Chloride IV Infused Q6H CURLY Infusion Oxycodone HCl 5 mg 06/21/19 17:17 06/21/19 18:36 Roxicodone PO 5 mg Q4HR PRN Administration Pain 5 to 7 Simethicone 80 mg 06/21/19 18:42 06/21/19 20:51 Mylicon PO 80 mg 0900,1300,1800,2100 PRN Administration GAS - Physical Exam Comments/Other: Path report revealed Adeno Ca of the gallbladder w/extension to the liver bed. I did not examine her today. ABX Reporting Has patient been on IV antibiotics over the past 48 hours?: No Impression/Plan - Problem List Problem List: Adeno Ca GB w/hepatic extension Oncology consult ordered. Cont current Tx
[2019-06-22] MEDS ORDERED: VANCOMYCIN INJ 0.75 GM in SODIUM CHLORIDE 0.9% 250 ML IV SCH ×2
[2019-06-22] MEDS: PIPERACILLIN/TAZOBACTAM 3.375 GM in SODIUM CHLORIDE 0.9% MINIBAG 100 ML IV SCH ×2 (03:06→11:13)
[2019-06-22] MEDS: oxyCODONE 5 MG TABLET PO PRN ×4 (06:32→21:16)
[2019-06-22] MEDS: PANTOPRAZOLE 40 MG TABLET PO SCH (06:32)
[2019-06-22] MEDS: ACETAMINOPHEN 325 MG TABLET PO PRN ×5 (06:37→21:16)
--- NOTE | 2019-06-22 07:23 | HISTORY & PHYSICAL EXAMINATION ---
Chief Complaint - Chief Complaint Chief Complaint: weakness after surgery History of Present Illness - Admitted From Admitted From:: Acute care [facility] - History Obtained From Records Reviewed: [facility] History obtained from: [employer] and patient Exam Limitations: none - History of Present Illness HPI Comment/Other: Fide elderly female who presented to our hospital with right upper quadrant pain for weeks. Gradually increasing in intensity after food. Her family brought her in when her abdominal pain became so severe after one meal. This was on June 16. In the emergency room she was identified as having acute cholecystitis. In the operating room she was identified as having a nearly ruptured gangrenous gallbladder with a 16mm common bile duct. This patient was on Coumadin for atrial fibrillation. Coumadin has been resumed. Postoperatively the only complication she had was postoperative pneumonia manifesting as right shoulder pain. Initially the thought was that she had referred pain from her gallbladder surgery, but chest x-ray confirmed infiltrate. 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 After surgery she had weakness, hard for her to get out of bed and ambulate. Mostly this was due to her age. By postoperative day #5 she was felt medically stable to be transition to rehab. Physical therapy has been evaluating the patient and feels the patient could benefit from a few more days of strength, endurance exercise. She is now transition to swing bed status. Other than fatigue, weakness, she denies chest pain, cough, shortness of breath. Appetite is still diminished, but she is having bowel movements and tolerating her diet. Occasional urinary incontinent. Denies dysuria, urgency, frequency. 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 Stage III. ER/FL positive and HER-2 negative) : reports: Incontinence, Kidney stones HEENT: reports: None Psych: reports: None Musculoskeletal: reports: Osteoarthritis Derm: reports: None MRSA Hx?: No - Past Surgical History General: reports: Cholecystectomy (06/16/19), Colonoscopy Ortho: reports: Knee replacement /SALESPERSON HOSIERY: reports: Dilation and currettage, Mastectomy - Family & Social History Family History Comment/Other: She denies any significant family medical history Social History Notes: Denies tobacco, alcohol or illicit drug use. She has a son living with her. - POLST Patient has POLST: No POLST Status: Full Code Meds/Allgy - Home Medications Home Medications: Ambulatory Orders Medication Instructions Recorded Confirmed Acetaminophen [Tylenol Extra 500 mg PO BID 02/03/13 06/17/19 Strength] Atenolol [Tenormin] 12.5 mg PO DAILY 02/03/13 06/17/19 Calcium Carbonate/Vitamin D2 1 each PO DAILY 02/03/13 06/17/19 [Calcium with Vit D Tablet] Docusate Sodium 100Mg Capsule 100 mg PO DAILY 02/03/13 06/17/19 [Colace] Multivitamin [Multivitamins] 1 cap PO DAILY 02/03/13 06/17/19 Oxycodone HCl/Acetaminophen 0.5 - 1 each PO QID 02/03/13 06/17/19 [Endocet 10-325 mg Tablet] Potassium 99 mg PO DAILY 02/03/13 06/17/19 Senna [Senokot] 17.2 mg PO DAILY PRN 02/03/13 06/17/19 Tolterodine [Detrol LA] 4 mg PO DAILY 02/03/13 06/17/19 Warfarin Sodium [Coumadin] 0 mg PO DAILY 02/03/13 06/17/19 Tamoxifen Citrate 20 mg PO DAILY 06/13/13 06/17/19 Ascorbic Acid [Vitamin C] 500 mg PO DAILY 12/26/13 06/17/19 Magnesium 30 mg PO DAILY 12/26/13 06/17/19 Lidocaine Patch 5% [Lidoderm Patch] 1 patch TOP DAILY PM 04/27/17 06/17/19 fentaNYL [Fentanyl 25mcg patch] 12 mcg TOP Q72H 04/27/17 06/17/19 Nifedipine [Nifedipine ER] 60 mg PO BID 06/16/19 06/17/19 Pantoprazole [Protonix] 40 mg PO DAILY 06/16/19 06/17/19 - Allergies Allergies/Adverse Reactions: Allergies Allergy/AdvReac Type Severity Reaction Status Date / Time Sulfa (Sulfonamide Allergy Intermediate FEVER/BODY Verified 06/15/19 21:42 Antibiotics) ACHE ibuprofen AdvReac Intermediate GI UPSET Verified 06/15/19 21:42 Review of Systems - Constitutional Constitutional: reports: Fatigue, Weakness, Poor appetite. denies: Fever, Chills, Malaise, Diaphoresis, Night sweats - Eyes Eyes: denies: Pain, Irritation, Amaurosis, Blurred vision - Ears, Nose & Throat Ears, Nose & Throat: reports: Hearing loss. denies: Ear pain, Nasal obstruction, Sore throat - Cardiovascular Cariovascular: reports: Lightheadedness. denies: Irregular heart rate, Palpitations, Chest pain, Edema, Syncope - Respiratory Respiratory: denies: Cough, Sputum production, Wheezing, Orthopnea, SOB at rest, SOB with exertion - Gastrointestinal Gastrointestinal: reports: Change in bowel habits (soft stool). denies: Abdominal pain, Abdominal distention, Constipation, Diarrhea, Black stools, Bloody stools, Nausea, Vomiting - Genitourinary Genitourinary: reports: Urgency, Incontinence. denies: Dysuria, Frequency, Hematuria, Flank pain, Nocturia - Musculoskeletal Musculoskeletal: reports: Stiffness, Limited range of motion (right shoulder is frozen in place), Joint pain, Other (she takes fentanyl for joint pain from OA and "hurting all over" but she doesn't really feels she needs it bc 'it doesn't work" and prefers oxycodone 10 mg prn). denies: Muscle pain, Back pain, Muscle aches - Integumentary Integumentary: denies: Rash - Neurological Neurological: reports: General weakness, Memory problems. denies: Focal weakness, Headache, Dizziness, Numbness - Psychiatric Psychiatric: reports: Anxiety. denies: Depression, Suicidal - Endocrine Endocrine: denies: Polyuria, Polydypsia - Hematologic/Lymphatic Hematologic/Lymphatic: denies: Anemia, Bruising, Petechiae, Blood clots, Lymphadenopathy Prior Level of Functionality: Prior to June 16, patient was independent with activities of daily living. Able to feed herself, dress herself.She used a cane or walker to ambulate. needed DME bc of OA. She has a daughter who takes her to appointments and son that lives with her. Exam - Vital Signs Reviewed Vital Signs: Yes Vital Signs: Selected Entries 06/22/19 09:00 Temperature 36.7 C Heart Rate [ 98 Brachial] Respiratory 18 Rate Blood Pressure 128/80 [Right Brachial artery] O2 Saturation 95 - Physical Exam General Appearance: positive: No acute distress, Alert, Other (elderly female, 5'1" @ 72 kg) Eyes Bilateral: positive: PERRL, EOMI ENT: positive: Pharynx nml Neck: positive: No JVD. negative: Stiff neck, Carotid bruit Respiratory: positive: Chest non-tender. negative: Wheezes, Rales, Rhonchi Cardiovascular: positive: Regular rate & rhythm, Systolic murmur. negative: Gallop/S4, Friction rub Abdomen: positive: No organomegaly, Nml bowel sounds, No distention, Tenderness (mild,). negative: Guarding, Rebound Skin: positive: Warm, Dry Extremities: positive: Non-tender, Full ROM, Pedal edema (trace around ankles) Neurologic/Psychiatric: positive: Oriented x3, CN's nml (2-12), Motor nml Conclusion/Plan - Problem List (1) Generalized weakness Conclusion/Plan: This is associated with a postoperative setting after acute cholecystitis. While she has been progressing with physical therapy in the inpatient setting, the patient is still requiring assist to transitioning to a sitting position, and from sitting to standing. At times requires verbal cues to place her body in the appropriate position. She requires contact-guard assist to transfer from sitting to standing and requires verbal cues to make herself lean forward to use her legs firmly to push upwards. She is able to ambulate 40 feet by now. She will benefit for continued physical therapy services after discharge from acute care. As such she is transition to swing bed. (2) Atrial fibrillation Conclusion/Plan: Rate is controlled. Patient is on anticoagulation at home. She will be resumed on atenolol and Coumadin. Check INR daily Qualifiers: Atrial fibrillation type: longstanding persistent Qualified Code(s): I48.11 - Longstanding persistent atrial fibrillation (3) Hypertension Conclusion/Plan: controlled on her usual home meds that will be continued. Qualifiers: Hypertension type: essential hypertension Qualified Code(s): I10 - Essential (primary) hypertension (4) HCAP (healthcare-associated pneumonia) Conclusion/Plan: Day#5 vancomycin and more than that with zosyn. Surgery no longer needs zosyn for her gallbladder and can be stopped. i will stop abx since she is afebrile, not hypoxic. (5) Chronic pain Conclusion/Plan: due to OA. i will stop the fentanyl and see how she does and increase her oxycodone from 5 mg to 10 mg q4h with tylenol prn. 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 Nair has spoken of the diagnosis to the patient. Family was not in the room so i expect followup conversations will be needed. i have contacted Dr. Iban Adams to let him know But he was not in today. His colleague Dr. Alonzo Simental was in the medical amatory clinic. We discussed the case briefly. She will need a CA 199, alpha-fetoprotein, CT of the chest with IV contrast. Dr. Simental will leave it to Dr. Adams's discretion as to whether she gets an MRI of the abdomen and pelvis versus a multiphasic CT of the abdomen and pelvis. The thought is that she may need repeat resection of her liver bed or the ductal stoma. Margins were not clear. But this patient may opt not to do anything else considering she is 88 and is already survived breast cancer. - Lab Results Lab results reviewed: Yes Core Measures - DVT/VTE - Prophylaxis VTE/DVT Device ordered at admit?: Yes
[2019-06-22] MEDS ORDERED: fentaNYL 12 MCG PATCH TOP SCH (09:00)
[2019-06-22 10:16] LABS: INR 2.9 (0.8-1.2); PT - PROTHROMBIN TIME 31.5 secs (9.9-12.6)
[2019-06-22] MEDS: polyethylene glycoL 3350 17 GM PACKET PO SCH (10:36)
[2019-06-22] MEDS: POTASSIUM CHLORIDE 20 MEQ TABLET PO SCH ×2 (11:12→11:22)
[2019-06-22] MEDS: atenoloL 25 MG TABLET PO SCH (11:12)
--- NOTE | 2019-06-22 11:17 | PHARMACY PROGRESS NOTE ---
- Monitoring Indication for anticoagulation: Atrial Fibrillation Goal INR: 2-3 unless otherwise specified by provider Potentially interacting medications: zosyn (may inc INR/risk of bleed), vancomycin (may inc risk of bleed), pantoprazole (may inc INR) Other anticoagulation: None Risk factors for bleed: Recent injury or surgery, Heart disease or OR, Age >65 - Recommendations Dosing: Anticoagulation Monitoring 06/22/19 10:04 PT 31.5 H INR 2.9 H Last Dose Given:at home S&S of bleeding: none noted
[2019-06-22 11:46] LABS: VANCOMYCIN,TROUGH 16.5 ug/mL (10.0-20.0)
[2019-06-22 11:55] LABS: CREATININE 0.6 mg/dL (0.4-1.0)
[2019-06-22] MEDS ORDERED: IOVERSOL 320 100 ML VIAL IVP ONE ×2 (11:58→17:08)
--- NOTE | 2019-06-22 12:17 | PROVIDER PROGRESS NOTE ---
Subjective - General Admit Date: 06/21/19 Procedure Date: 06/16/19 Post Op Days: 6 - Review of Systems Gastrointestinal: positive: Other (States she is now haing BM's) Objective - Patient Data Vital Signs: Vital Signs x48h Temp Pulse Resp BP Pulse Ox 06/22/19 09:00 36.7 C 98 18 128/80 95 Weight: Weight 06/20/19 06/21/19 06/22/19 23:59 23:59 23:59 Weight (kg) 72 kg Intake & Output: Intake and Output Totals x24h 06/20/19 06/21/19 06/22/19 23:59 23:59 23:59 Intake Total 200 720 Output Total 900 Balance 200 -180 - Lab Results Lab Results: 06/22/19 11:24 Other Lab Results: Lab Results x24hrs 06/22/19 06/22/19 06/22/19 Range/Units 11:24 11:24 10:04 PT 31.5 H (9.9-12.6) secs INR 2.9 H (0.8-1.2) Creatinine 0.6 (0.4-1.0) mg/dL Estimated GFR (MDRD) 95 (>89) Last Dose Date 06/22/19 Last Dose Time 03:15 Vancomycin Trough 16.5 (10.0-20.0) ug/mL - Current Medications Current Medications: Current Medications Generic Name Dose Route Start Last Admin Trade Name Freq PRN Reason Stop Dose Admin Acetaminophen 650 mg 06/21/19 17:17 06/22/19 06:37 Tylenol PO 650 mg Q4HR PRN Administration Pain 1 to 4 or Fever > 38C Atenolol 25 mg 06/22/19 09:00 06/22/19 11:12 Tenormin PO 25 mg DAILY CURLY Administration Oxycodone HCl 10 mg 06/22/19 10:43 06/22/19 11:12 Roxicodone PO 10 mg Q4HR PRN Administration Pain 5 to 7 Pantoprazole Sodium 40 mg 06/22/19 07:00 06/22/19 06:32 Protonix PO 40 mg QDAC CURLY Administration Polyethylene Glycol 17 gm 06/22/19 09:00 06/22/19 10:36 Miralax PO Not Given DAILY CURLY Potassium Chloride 20 meq 06/22/19 08:00 06/22/19 11:22 K-Dur PO Not Given DAILYWM CURLY Simethicone 80 mg 06/21/19 18:42 06/21/19 20:51 Mylicon PO 80 mg 0900,1300,1800,2100 PRN Administration GAS - Physical Exam Abdomen: positive: Non-tender (Pathology notified me of her GBbeing adeno Ca) ABX Reporting Has patient been on IV antibiotics over the past 48 hours?: Yes Impression/Plan - Problem List Problem List: Oncology consulted afterIspoke w/pt. She was understanding and is awaiting oncology input. She is much improved clinically and I will sign off surgically unless requested to see her again.
[2019-06-22] MEDS ORDERED: WARFARIN 5 MG TABLET PO SCH (14:00)
--- NOTE | 2019-06-22 16:01 | CT Report ---
Reason: cholangioca staging Procedure Date: 06/22/2019 Accession Number: [id number] / [id number] Procedure: CT - CHEST W CPT Code: Final Report FULL RESULT: EXAM: CT CHEST EXAM DATE: 06/22/2019 02:16 PM. CLINICAL HISTORY: Cholangiocarcinoma staging. COMPARISONS: ABDOMEN W/ 06/16/2019 2:15 PM. TECHNIQUE: Routine helical CT imaging was performed through the chest. IV contrast: 80 cc of Optiray 320. Reconstructions: Coronal and sagittal. In accordance with CT protocol optimization, one or more of the following dose reduction techniques were utilized for this exam: automated exposure control, adjustment of mA and/or KV based on patient size, or use of iterative reconstructive technique. FINDINGS: Lungs/Pleura: Small effusions, right greater than left. Small patchy groundglass infiltrates in the upper lobes. Atelectasis/scarring in the bases. No nodules, bronchial thickening, consolidation, or edema. Pulmonary vasculature is normal. No pneumothorax. Mediastinum: Moderate aortic and coronary artery calcification. No adenopathy or masses. Large heart. No aortic enlargement. Moderate hiatal hernia. Other: Postop left breast 5.7 x 6.9 x 6.6 cm seroma noted. Bones: Degenerative changes of both glenohumeral joints. Mild S-shaped scoliosis. No destructive bone abnormality is identified. Old anterior left rib fractures noted. IMPRESSION: 1. No sign of metastatic disease in the chest. 2. Cardiomegaly with bilateral pleural effusions. 3. Small patchy groundglass infiltrates in the upper lobes. 4. Postop left breast seroma noted. RADIA
[2019-06-22] MEDS: SIMETHICONE CHEW 80 MG TABLET PO PRN (21:16)
[2019-06-22] MEDS ORDERED: NON FORMULARY MED PO SCH (22:30)
[2019-06-22] MEDS: LIDOCAINE PATCH 5% TOP SCH (22:50)
[2019-06-23] MEDS: ACETAMINOPHEN 325 MG TABLET PO PRN ×4 (01:23→22:40)
[2019-06-23] MEDS: oxyCODONE 5 MG TABLET PO PRN ×4 (01:24→22:40)
[2019-06-23 05:17] LABS: INR 3.9 (0.8-1.2); PT - PROTHROMBIN TIME 40.9 secs (9.9-12.6)
[2019-06-23] MEDS: PANTOPRAZOLE 40 MG TABLET PO SCH (06:33)
[2019-06-23] MEDS: POTASSIUM CHLORIDE 20 MEQ TABLET PO SCH (08:14)
[2019-06-23] MEDS: polyethylene glycoL 3350 17 GM PACKET PO SCH (09:03)
[2019-06-23] MEDS: atenoloL 25 MG TABLET PO SCH (09:03)
[2019-06-23] MEDS: LIDOCAINE PATCH 5% TOP SCH (09:04)
--- NOTE | 2019-06-23 10:03 | PHARMACY PROGRESS NOTE ---
- Monitoring Indication for anticoagulation: Atrial Fibrillation Goal INR: 2-3 unless otherwise specified by provider Potentially interacting medications: Pantoprazole which may increase INR somewhat - Of note, last dose vancomycin was 06/21 @ 23:56 & last dose Zosyn was 06/22 @ ~11:00. These medications likely reflected in current INR. Other anticoagulation: None Risk factors for bleed: Recent injury or surgery, Heart disease or MS, Age >65 - Recommendations Dosing: Anticoagulation Monitoring 06/23/19 06/22/19 04:50 10:04 PT 40.9 H 31.5 H INR 3.9 H 2.9 H Last Dose Given: 5mg 06/22 S&S of bleeding: none noted History from initial admit: Hgb Hct INR Dose given 06/15 11.8 37.7 06/16 11.1 37.4 1.9 06/17 11.3 36.3 1.7 06/18 10.6 34.5 2.0 06/19 10.3 33.4 1.7 5MG 06/20 10.3 33.4 1.5 5MG 06/21 10.3 33.3 2.2 Pharmacy recommendation: Hold dose
[2019-06-23] MEDS: MAGNESIUM OXIDE 400 MG TABLET PO SCH (11:49)
[2019-06-23] MEDS: MULTIVITAMIN TABLET PO SCH (11:50)
[2019-06-23] MEDS: DOCUSATE SODIUM 100 MG CAPSULE PO SCH (11:50)
[2019-06-24] MEDS: oxyCODONE 5 MG TABLET PO PRN ×4 (04:41→22:52)
[2019-06-24] MEDS: ACETAMINOPHEN 325 MG TABLET PO PRN (04:50)
[2019-06-24 05:25] LABS: INR 3.9 (0.8-1.2)
[2019-06-24] MEDS: PANTOPRAZOLE 40 MG TABLET PO SCH (07:31)
[2019-06-24] MEDS ORDERED: WARFARIN 5 MG TABLET PO SCH (09:00)
[2019-06-24] MEDS: polyethylene glycoL 3350 17 GM PACKET PO SCH (09:09)
[2019-06-24] MEDS: DOCUSATE SODIUM 100 MG CAPSULE PO SCH (09:11)
[2019-06-24] MEDS: MAGNESIUM OXIDE 400 MG TABLET PO SCH (09:11)
[2019-06-24] MEDS: SENNA 8.6 MG TABLET PO PRN (09:11)
[2019-06-24] MEDS: MULTIVITAMIN TABLET PO SCH (09:12)
[2019-06-24] MEDS: atenoloL 25 MG TABLET PO SCH (09:12)
[2019-06-24] MEDS: TOLTERODINE LA 2 MG CAPSULE PO SCH (09:12)
[2019-06-24] MEDS: POTASSIUM CHLORIDE 20 MEQ TABLET PO SCH (09:13)
[2019-06-24] MEDS ORDERED: LIDOCAINE PATCH 5% TOP SCH (10:00)
--- NOTE | 2019-06-24 12:55 | PROVIDER PROGRESS NOTE ---
Subjective - Prog Note Date Prog Note Date: 06/24/19 Prog Note Time: 12:53 - Subjective Subjective: I am being asked to see the patient because of right upper quadrant abdominal pain. This sai woman is approximately postoperative day #8 for emergent ga llbladder surgery. 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 Margins are not clear and she had extension of the tumor through the muscularis of the gallbladder to the liver bed. She does not have a fever, elevated white cell count. She has been working with physical therapy to progress with strengthening and endurance to get home. She rates her right upper quadrant pain as a 7 out of a 10. She is tolerating her diet without any increase in pain. Pain is worse with walking. She is having bowel movements. She is not jaundiced. Pain gets better when she sits down or lays down. She is worried that the cancer is growing faster than we anticipated. She is progressing with her goals of physical therapy. But she is anxious about the pain. She requires minimum assist for gait with a walker. At this time the y are not ready to discuss bedside commode. She failed her step test yesterday and will work with physical therapy today about getting up and down a step because she needs that for home. pain in shoulder and abd is controlled as long as she can have oxycodone 10 mg po q4 hr. We stopped the fentanyl patch 2 days ago and her pain is no better no worse in her RUQ or her right shoulder. Current Medications - Current Medications Current Medications: Active Medications Acetaminophen (Tylenol) 650 mg PO Q4HR PRN PRN Reason: Pain 1 to 4 or Fever > 38C Last Admin: 06/24/19 04:50 Dose: 650 mg Atenolol (Tenormin) 25 mg PO DAILY [facility] Last Admin: 06/24/19 09:12 Dose: 25 mg Calcium Carbonate/Glycine (Tums) 500 mg PO BID PRN PRN Reason: Heartburn Docusate Sodium (Colace 100mg Capsule) 100 mg PO DAILY [facility] Last Admin: 06/24/19 09:11 Dose: 100 mg Lidocaine (Lidoderm Patch) 1 patch TOP 2100 CURLY Magnesium Oxide (Mag Ox) 100 mg PO DAILY [facility] Last Admin: 06/24/19 09:11 Dose: 100 mg Multivitamins (Theragran) 1 tab PO DAILY [facility] Last Admin: 06/24/19 09:12 Dose: 1 tab Ondansetron HCl (Zofran Odt) 4 mg TL Q6HR PRN PRN Reason: Nausea / Vomiting Oxycodone HCl (Roxicodone) 10 mg PO Q4HR PRN PRN Reason: Pain 5 to 7 Last Admin: 06/24/19 11:11 Dose: 10 mg Pantoprazole Sodium (Protonix) 40 mg PO QDAC [facility] Last Admin: 06/24/19 07:31 Dose: 40 mg Patient Own Med ( (Melatonin 3mg)) 1 each PO QPM [facility] Last Admin: 06/23/19 22:04 Dose: 1 each Polyethylene Glycol (Miralax) 17 gm PO DAILY [facility] Last Admin: 06/24/19 09:09 Dose: 17 gm Potassium Chloride (K-Dur) 20 meq PO DAILYWM [facility] Last Admin: 06/24/19 09:13 Dose: 20 meq Senna (Senokot) 17.2 mg PO DAILY PRN PRN Reason: Constipation Last Admin: 06/24/19 09:11 Dose: 17.2 mg Simethicone (Mylicon) 80 mg PO 0900,1300,1800,2100 PRN PRN Reason: GAS Last Admin: 06/22/19 21:16 Dose: 80 mg Tolterodine Tartrate (Detrol La) 4 mg PO DAILY [facility] Last Admin: 06/24/19 09:12 Dose: 4 mg Acetaminophen [Tylenol Extra Strength] 500 mg PO BID 02/03/13 Atenolol [Tenormin] 12.5 mg PO DAILY 02/03/13 Calcium Carbonate/Vitamin D2 [Calcium with Vit D Tablet] 1 each PO DAILY 02/03/13 Docusate Sodium 100Mg Capsule [Colace] 100 mg PO DAILY 02/03/13 Multivitamin [Multivitamins] 1 cap PO DAILY 02/03/13 Oxycodone HCl/Acetaminophen [Endocet 10-325 mg Tablet] 0.5 - 1 each PO QID 02/03/13 Potassium 99 mg PO DAILY 02/03/13 Senna [Senokot] 17.2 mg PO DAILY PRN 02/03/13 Tolterodine [Detrol LA] 4 mg PO DAILY 02/03/13 Warfarin Sodium [Coumadin] 0 mg PO DAILY 02/03/13 Tamoxifen Citrate 20 mg PO DAILY 06/13/13 Ascorbic Acid [Vitamin C] 500 mg PO DAILY 12/26/13 Magnesium 30 mg PO DAILY 12/26/13 Lidocaine Patch 5% [Lidoderm Patch] 1 patch TOP DAILY PM 04/27/17 Nifedipine [Nifedipine ER] 60 mg PO BID 06/16/19 Pantoprazole [Protonix] 40 mg PO DAILY 06/16/19 fentaNYL 12 MCG PATCH [Duragesic 12mcg patch] 12 mcg TOP Q72H 06/22/19 Objective - Vital Signs/Intake & Output Reviewed Vital Signs: Yes Vital Signs: Vital Signs x48h Pulse Resp BP Pulse Ox 06/24/19 09:00 60 18 105/48 L 95 06/24/19 06:25 66 18 129/52 L 94 Intake & Output: Intake & Output 06/21/19 06/22/19 06/23/19 06/24/19 23:59 23:59 23:59 23:59 Intake Total 200 1307 1050 480 Output Total 1000 500 300 Balance 200 307 550 180 - Objective General Appearance: positive: No acute distress, Alert, Other (tiny elderly female eating her lunch, daughter at the bedside.) Eyes Bilateral: positive: PERRL, EOMI ENT: positive: No signs of dehydration Neck: positive: No JVD Respiratory: positive: Chest non-tender, Other (intermitent mild cough from tickle in her throat, nonproductive during my exam. She is using incentive spirometry). negative: Wheezes, Rales, Rhonchi Cardiovascular: positive: Regular rate & rhythm, Systolic murmur. negative: Gal lop/S4, Friction rub Abdomen: positive: No organomegaly, Nml bowel sounds, No distention, Tenderness (ruq). negative: Guarding, Rebound Skin: positive: Warm, Dry Extremities: positive: Non-tender, Pedal edema. negative: Full ROM (right shouder is frozen) Neurologic/Psychiatric: positive: Oriented x3, CN's nml (2-12), Motor nml (except for gen weakness that has slowly improved of the last few days). negative: Mood/affect nml (anxious) - Lab Results Fish Bones: 06/22/19 11:24 Other Labs: Lab Results x24hrs 06/24/19 06/23/19 Range/Units 04:20 04:50 PT 41.0 H (9.9-12.6) secs INR 3.9 H (0.8-1.2) Tumor Marker AFP 1.6 ng/mL ABX Reporting Has patient been on IV antibiotics over the past 48 hours?: No Assessment/Plan - Problem List (1) Right upper quadrant abdominal pain Impression: In a patient who is postoperative day 8 for gangrenous gallbladder, acute cholecystitis, and final pathology showing cancer of the gallbladder, and gallbladder duct. Margins not clear. There is no fever, and abdominal exam does confirm the right upper quadrant pain. Plan: Ultrasound to assess anatomy CBC and CMP (2) Generalized weakness Impression: continue to work w PT and focus on stairs today. Hopefully home soon once goals have been met. 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 Gavin 07/04 in followup. (4) Chronic pain Impression: due to shoulder and OA pain. Off fentanyl for 2-3 days now and she feels no worse off of it. Feels her oxycodone q4h prn controls her.
--- NOTE | 2019-06-24 19:50 | Ultrasound Report ---
Reason: ruq pain after lap cherelle, POD #8 Procedure Date: 06/24/2019 Accession Number: [id number] / [id number] Procedure: US - Abdomen Limited CPT Code: Final Report FULL RESULT: EXAM: ABDOMEN ULTRASOUND LIMITED, RUQ EXAM DATE: 06/24/2019 07:26 PM. CLINICAL HISTORY: Ruq pain after lap cherelle, POD 8. COMPARISON: ABDOMEN LIMITED 06/15/2019 11:54 PM CHEST W/ 06/22/2019 1:57 PM ABDOMEN W/ 06/16/2019 2:15 PM. TECHNIQUE: Real-time scanning was performed with static images obtained. FINDINGS: The liver measures 15.7 cm. Echotexture within normal limits. Hepatopetal main portal flow. Surgical changes from cholecystectomy. Heterogeneous collection with internal gas and debris in the bladder fossa/surgical bed measures about 6.3 x 6.9 x 7 cm, grossly similar to prior CT. The common bile duct is dilated up to 14 mm, similar to prior. No intrahepatic duct dilation visualized. IMPRESSION: 1. Fluid and gas collection again seen in the gallbladder fossa, which may represent an abscess. 2. Unchanged dilation of the common bile duct. RADIA
[2019-06-24] MEDS: LIDOCAINE PATCH 5% TOP SCH (21:49)
[2019-06-25] MEDS: oxyCODONE 5 MG TABLET PO PRN ×4 (03:26→21:27)
[2019-06-25 05:21] LABS: BASOPHILS % (AUTO) 0.4 %; EOSINOPHILS # (AUTO) 0.1 10^3/uL (0.0-0.7); EOSINOPHILS % (AUTO) 1.5 %; HGB - HEMOGLOBIN 10.1 g/dL (12.0-16.0); LYMPHOCYTES # (AUTO) 0.9 10^3/uL (1.5-3.5); LYMPHOCYTES % (AUTO) 16.9 %; MEAN CORPUSCULAR HEMOGLOBIN 26.2 pg (27.0-31.0); MEAN CORPUSCULAR HGB CONC 30.3 g/dL (32.0-36.0); MEAN CORPUSCULAR VOLUME 86.5 fL (81.0-99.0); MEAN PLATELET VOLUME 9.8 fL (7.9-10.8); MONOCYTES # (AUTO) 0.5 10^3/uL (0.0-1.0); NEUTROPHILS # (AUTO) 3.7 10^3/uL (1.5-6.6); NEUTROPHILS % (AUTO) 70.6 %; PLT - PLATELET COUNT 284 10^3/uL (130-450); RED BLOOD COUNT 3.85 10^6/uL (4.20-5.40); RED CELL DISTRIBUTION WIDTH 16.7 % (12.0-15.0); WHITE BLOOD COUNT 5.2 x10^3/uL (4.8-10.8)
[2019-06-25 05:25] LABS: CALCIUM 8.4 mg/dL (8.5-10.3); CREATININE 0.6 mg/dL (0.4-1.0)
[2019-06-25 05:39] LABS: INR 2.7 (0.8-1.2); PT - PROTHROMBIN TIME 29.3 secs (9.9-12.6)
[2019-06-25] MEDS: PANTOPRAZOLE 40 MG TABLET PO SCH (06:07)
[2019-06-25] MEDS ORDERED: SODIUM CHLORIDE FLUSH 0.9% 10 ML SYRINGE ONE (08:24)
[2019-06-25] MEDS ORDERED: IOVERSOL 320 100 ML VIAL IVP ONE (09:43)
--- NOTE | 2019-06-25 10:17 | CT Report ---
Reason: Concern for gallbladder fossa abscess on US. Procedure Date: 06/25/2019 Accession Number: [id number] / [id number] Procedure: CT - Abdomen/Pelvis W CPT Code: Final Report FULL RESULT: EXAM: CT ABDOMEN AND PELVIS EXAM DATE: 06/25/2019 09:38 AM. CLINICAL HISTORY: Concern for gallbladder fossa abscess on US. COMPARISONS: ABDOMEN W/O 12/10/2017 9:39 AM. TECHNIQUE: Routine helical CT imaging was performed through the abdomen and pelvis. IV contrast: OPTI 320 90ML. Enteric contrast: No. Reconstructions: Coronal and sagittal. In accordance with CT protocol optimization, one or more of the following dose reduction techniques were utilized for this exam: automated exposure control, adjustment of mA and/or KV based on patient size, or use of iterative reconstructive technique. FINDINGS: Lung Bases: Small to moderate sized bilateral pleural effusion is seen. Adjacent basilar airspace consolidation could reflect compressive atelectasis or mild infection. Cardiomegaly again noted. Liver: Hepatic parenchymal hypoattenuation is consistent with steatosis. Gallbladder/Bile Ducts: Surgically absent gallbladder. Somewhat thick-walled rim-enhancing fluid collection in the gallbladder fossa measuring 5.9 x 6.7 cm containing a tiny focus of gas) 3/32) is worrisome for abscess. Dilated common bile duct to 12 mm could reflect postcholecystectomy appearance in this patient, minimally increased compared to prior. Spleen: Splenic calcifications reflect sequelae of remote granulomatous infection. Pancreas: Severely atrophic pancreas. No evidence for acute inflammation or ductal dilation. Adrenal Glands: Normal. Kidneys: No solid renal masses or hydronephrosis bilaterally. Peritoneal Cavity/Bowel: Hiatal hernia again seen. Normal caliber bowel loops without signs of obstruction. The appendix is not definitely identified. No pericecal inflammation. No pathologically enlarged intraperitoneal or retroperitoneal lymph nodes. Mild pelvic ascites seen. Pelvic Organs: Unremarkable urinary bladder for degree of distention. Uterus is within normal limits by CT. Ovaries appear symmetric and unremarkable. No enlarged pelvic or inguinal lymph nodes. Vasculature: Unchanged position of IVC filter. Atherosclerotic calcifications in the abdominal aorta and iliac vessels. No aneurysms. Bones: Again seen is left convex lumbar scoliosis. Osteopenia. Multilevel degenerative changes noted in the spine. Other: Body wall edema noted. Again seen is stable 6.2 x 6.5 cm fluid collection in the inferior aspect of the left breast tissue. Fat containing hernia sac in the left lower anterior abdominal wall and the neck measuring 1.5 cm is seen. The hernia sac also contains small amount of fluid and foci of gas. Additional subcutaneous foci of gas are seen in the anterior lower abdominal wall and anterior left upper abdominal wall. IMPRESSION: 1. Status post cholecystectomy with a 6.7 cm thick-walled rim-enhancing gas and fluid collection in the gallbladder fossa could reflect an abscess in the appropriate clinical context. Correlation with patient's symptoms and laboratory parameters is recommended. 2. No other acute abnormality seen within the abdomen or pelvis. 3. Abdominal wall ventral hernia seen containing fat and mild foci of gas and fluid, of unclear etiology. Additional foci of subcutaneous gas seen in the lower abdominal wall and left upper quadrant. Query iatrogenic injections. If this history does not exist, trauma or necrotizing soft tissue infection remain considerations. 4. Bilateral pleural effusions with adjacent airspace consolidation that could reflect atelectasis or possibly mild infection. 5. Cardiomegaly noted. 6. Moderate sized hiatal hernia again seen. RADIA The above critical result findings were discussed with Dr. Bell by Dr. Breezy Bahena at 10:15 AM on 06/25/2019.
[2019-06-25] MEDS: TOLTERODINE LA 2 MG CAPSULE PO SCH (10:54)
[2019-06-25] MEDS: atenoloL 25 MG TABLET PO SCH (10:57)
[2019-06-25] MEDS: SENNA 8.6 MG TABLET PO PRN (13:22)
[2019-06-25] MEDS: POTASSIUM CHLORIDE 20 MEQ TABLET PO SCH (13:23)
[2019-06-25] MEDS: DOCUSATE SODIUM 100 MG CAPSULE PO SCH (13:23)
[2019-06-25] MEDS: MAGNESIUM OXIDE 400 MG TABLET PO SCH (13:23)
[2019-06-25] MEDS: MULTIVITAMIN TABLET PO SCH (13:23)
[2019-06-25] MEDS: polyethylene glycoL 3350 17 GM PACKET PO SCH (13:23)
--- NOTE | 2019-06-25 15:31 | PROVIDER PROGRESS NOTE ---
Subjective - General Admit Date: 06/21/19 Procedure Date: 06/16/19 Post Op Days: 9 Procedure Performed: Laparoscopic cholecystectomy - Review of Systems Drain Type: None General: positive: Weakness, Fatigue HEENT: positive: Other (dry mouth) Pulmonary: positive: No symptoms Cardiovascular: positive: No symptoms Gastrointestinal: positive: Abdominal pain, Other (States she is now haing BM's). negative: Nausea, Vomiting Musculoskeletal: positive: Shoulder pain, Back pain Skin: positive: No symptoms Objective - Patient Data Reviewed Vital Signs: Yes Vital Signs: Vital Signs x48h Temp Pulse Pulse Resp BP Pulse Ox 06/25/19 14:49 36.7 C 70 17 146/80 H 95 06/25/19 08:00 36.6 C 50 L 18 149/92 H 95 Intake & Output: Intake and Output Totals x24h 06/23/19 06/24/19 06/25/19 23:59 23:59 23:59 Intake Total 1050 1080 240 Output Total 500 300 150 Balance 550 780 90 - Lab Results Lab Results: 06/25/19 04:35 06/25/19 04:35 Other Lab Results: Lab Results x24hrs 06/25/19 06/25/19 06/25/19 Range/Units 04:35 04:35 04:35 WBC (4.8-10.8) x10^3/uL RBC (4.20-5.40) 10^6/uL Hgb (12.0-16.0) g/dL Hct (37.0-47.0) % MCV (81.0-99.0) fL MCH (27.0-31.0) pg MCHC (32.0-36.0) g/dL RDW (12.0-15.0) % Plt Count (130-450) 10^3/uL MPV (7.9-10.8) fL Neut # (Auto) (1.5-6.6) 10^3/uL Lymph # (Auto) (1.5-3.5) 10^3/uL Crawford # (Auto) (0.0-1.0) 10^3/uL Eos # (Auto) (0.0-0.7) 10^3/uL Baso # (Auto) (0.0-0.1) 10^3/uL Absolute Nucleated RBC x10^3/uL Nucleated RBC % /100WBC ESR 16 (0-30) mm/Hr PT (9.9-12.6) secs INR (0.8-1.2) Sodium 143 (135-145) mmol/L Potassium 4.0 (3.5-5.0) mmol/L Chloride 105 (101-111) mmol/L Carbon Dioxide 30 (21-32) mmol/L Anion Gap 8.0 (6-13) BUN 12 (6-20) mg/dL Creatinine 0.6 (0.4-1.0) mg/dL Estimated GFR (MDRD) 95 (>89) Glucose 125 H (70-100) mg/dL Calcium 8.4 L (8.5-10.3) mg/dL C-Reactive Protein 3.0 H (0-1.0) mg/dL CA 19-9 Antigen (<34) U/mL 06/25/19 06/25/19 06/23/19 Range/Units 04:35 04:35 04:50 WBC 5.2 (4.8-10.8) x10^3/uL RBC 3.85 L (4.20-5.40) 10^6/uL Hgb 10.1 L (12.0-16.0) g/dL Hct 33.3 L (37.0-47.0) % MCV 86.5 (81.0-99.0) fL MCH 26.2 L (27.0-31.0) pg MCHC 30.3 L (32.0-36.0) g/dL RDW 16.7 H (12.0-15.0) % Plt Count 284 (130-450) 10^3/uL MPV 9.8 (7.9-10.8) fL Neut # (Auto) 3.7 (1.5-6.6) 10^3/uL Lymph # (Auto) 0.9 L (1.5-3.5) 10^3/uL Crawford # (Auto) 0.5 (0.0-1.0) 10^3/uL Eos # (Auto) 0.1 (0.0-0.7) 10^3/uL Baso # (Auto) 0.0 (0.0-0.1) 10^3/uL Absolute Nucleated RBC 0.02 x10^3/uL Nucleated RBC % 0.4 /100WBC ESR (0-30) mm/Hr PT 29.3 H (9.9-12.6) secs INR 2.7 H (0.8-1.2) Sodium (135-145) mmol/L Potassium (3.5-5.0) mmol/L Chloride (101-111) mmol/L Carbon Dioxide (21-32) mmol/L Anion Gap (6-13) BUN (6-20) mg/dL Creatinine (0.4-1.0) mg/dL Estimated GFR (MDRD) (>89) Glucose (70-100) mg/dL Calcium (8.5-10.3) mg/dL C-Reactive Protein (0-1.0) mg/dL CA 19-9 Antigen 8 (<34) U/mL - Imaging Results Radiology Imaging: positive: Final report received Imaging Results Comments: Final Report PT NAME: OLINDA CULLEN MR#: [id number] ADM IN/MS3 AGE: 88 CI DT/TM: 06/25/19 PCP: : 1930 ATT: Heidi Berrios MD SEX: F ORD: Rolo Tellez MD EXAM: [id number] CT/ABPEW ([id number]) Reason: Concern for gallbladder fossa abscess on US. Procedure Date: 06/25/2019 Accession Number: [id number] / [id number] Procedure: CT - Abdomen/Pelvis W CPT Code: Final Report FULL RESULT: EXAM: CT ABDOMEN AND PELVIS EXAM DATE: 06/25/2019 09:38 AM. CLINICAL HISTORY: Concern for gallbladder fossa abscess on US. COMPARISONS: ABDOMEN W/O 12/10/2017 9:39 AM. TECHNIQUE: Routine helical CT imaging was performed through the abdomen and pelvis. IV contrast: OPTI 320 90ML. Enteric contrast: No. Reconstructions: Coronal and sagittal. In accordance with CT protocol optimization, one or more of the following dose reduction techniques were utilized for this exam: automated exposure control, adjustment of mA and/or KV based on patient size, or use of iterative reconstructive technique. FINDINGS: Lung Bases: Small to moderate sized bilateral pleural effusion is seen. Adjacent basilar airspace consolidation could reflect compressive atelectasis or mild infection. Cardiomegaly again noted. Liver: Hepatic parenchymal hypoattenuation is consistent with steatosis. Gallbladder/Bile Ducts: Surgically absent gallbladder. Somewhat thick-walled rim-enhancing fluid collection in the gallbladder fossa measuring 5.9 x 6.7 cm containing a tiny focus of gas) 3/32) is worrisome for abscess. Dilated common bile duct to 12 mm could reflect postcholecystectomy appearance in this patient, minimally increased compared to prior. Spleen: Splenic calcifications reflect sequelae of remote granulomatous infection. Pancreas: Severely atrophic pancreas. No evidence for acute inflammation or ductal dilation. Adrenal Glands: Normal. Kidneys: No solid renal masses or hydronephrosis bilaterally. Peritoneal Cavity/Bowel: Hiatal hernia again seen. Normal caliber bowel loops without signs of obstruction. The appendix is not definitely identified. No pericecal inflammation. No pathologically enlarged intraperitoneal or retroperitoneal lymph nodes. Mild pelvic ascites seen. Pelvic Organs: Unremarkable urinary bladder for degree of distention. Uterus is within normal limits by CT. Ovaries appear symmetric and unremarkable. No enlarged pelvic or inguinal lymph nodes. Vasculature: Unchanged position of IVC filter. Atherosclerotic calcifications in the abdominal aorta and iliac vessels. No aneurysms. Bones: Again seen is left convex lumbar scoliosis. Osteopenia. Multilevel degenerative changes noted in the spine. Other: Body wall edema noted. Again seen is stable 6.2 x 6.5 cm fluid collection in the inferior aspect of the left breast tissue. Fat containing hernia sac in the left lower anterior abdominal wall and the neck measuring 1.5 cm is seen. The hernia sac also contains small amount of fluid and foci of gas. Additional subcutaneous foci of gas are seen in the anterior lower abdominal wall and anterior left upper abdominal wall. IMPRESSION: 1. Status post cholecystectomy with a 6.7 cm thick-walled rim-enhancing gas and fluid collection in the gallbladder fossa could reflect an abscess in the appropriate clinical context. Correlation with patient's symptoms and laboratory parameters is recommended. 2. No other acute abnormality seen within the abdomen or pelvis. 3. Abdominal wall ventral hernia seen containing fat and mild foci of gas and fluid, of unclear etiology. Additional foci of subcutaneous gas seen in the lower abdominal wall and left upper quadrant. Query iatrogenic injections. If this history does not exist, trauma or necrotizing soft tissue infection remain considerations. 4. Bilateral pleural effusions with adjacent airspace consolidation that could reflect atelectasis or possibly mild infection. 5. Cardiomegaly noted. 6. Moderate sized hiatal hernia again seen. RADIA The above critical result findings were discussed with Dr. Bell by Dr. Linda Bahena at 10:15 AM on 06/25/2019. Pe Manager: Reading Radiologist: LINDA BAHENA MD Releasing Radiologist: LINDA BAHENA MD Released Date Time: 06/25/191008 Report [id number] cc: Rolo Tellez MD; Heidi Berrios MD - Current Medications Current Medications: Current Medications Generic Name Dose Route Start Last Admin Trade Name Freq PRN Reason Stop Dose Admin Acetaminophen 650 mg 06/21/19 17:17 06/24/19 04:50 Tylenol PO 650 mg Q4HR PRN Administration Pain 1 to 4 or Fever > 38C Atenolol 25 mg 06/22/19 09:00 06/25/19 10:57 Tenormin PO 25 mg DAILY [facility] Administration Docusate Sodium 100 mg 06/23/19 12:00 06/25/19 13:23 Colace 100mg Capsule PO 100 mg DAILY [facility] Administration Lidocaine 1 patch 06/24/19 21:00 06/24/19 21:49 Lidoderm Patch TOP 1 patch 2100 CURLY Administration Magnesium Oxide 100 mg 06/23/19 11:15 06/25/19 13:23 Mag Ox PO 100 mg DAILY [facility] Administration Multivitamins 1 tab 06/23/19 11:15 06/25/19 13:23 Theragran PO 1 tab DAILY [facility] Administration Oxycodone HCl 10 mg 06/22/19 10:43 06/25/19 10:54 Roxicodone PO 10 mg Q4HR PRN Administration Pain 5 to 7 Pantoprazole Sodium 40 mg 06/22/19 07:00 06/25/19 06:07 Protonix PO 40 mg QDAC [facility] Administration Patient Own Med ( 1 each 06/23/19 07:04 06/24/19 22:53 Melatonin 3mg) PO 1 each QPM [facility] Administration Polyethylene Glycol 17 gm 06/22/19 09:00 06/25/19 13:23 Miralax PO Not Given DAILY [facility] Potassium Chloride 20 meq 06/22/19 08:00 06/25/19 13:23 K-Dur PO 20 meq DAILYWM [facility] Administration Senna 17.2 mg 06/23/19 21:00 06/25/19 13:22 Senokot PO 17.2 mg DAILY PRN Administration Constipation Simethicone 80 mg 06/21/19 18:42 06/22/19 21:16 Mylicon PO 80 mg 0900,1300,1800,2100 PRN Administration GAS Tolterodine Tartrate 4 mg 06/24/19 09:00 06/25/19 10:54 Detrol La PO 4 mg DAILY [facility] Administration - Physical Exam Wound/Incisions: positive: Healing well General Appearance: positive: No acute distress Eyes Bilateral: positive: Normal inspection Respiratory: positive: Chest non-tender Abdomen: positive: No distention, Tenderness (tender in the right upper quadrant and right flank) Skin: positive: Color nml ABX Reporting Has patient been on IV antibiotics over the past 48 hours?: No Impression/Plan - Problem List Problem List: Fluid collection/abscess/biloma in the gall bladder fossa after complex cholecystectomy with pathology confirming cholangiocarcinoma. Nataly says her pain is not well controlled even with Oxycodone every 4 hours. I am concerned this is a biloma and is at high risk for bacterial seeding. I have recommended IR drainage prior to discharge as the patient is at significant risk for sepsis in her current state. I have discussed all of the above with the patient and her daughter Rebecca as well as will Dr. Berrios.
[2019-06-25] MEDS ORDERED: PHYTONADIONE 10 MG/ML AMP PO ONE (17:52)
[2019-06-25] MEDS ORDERED: CHERRY SYRUP 10 ML UDC PO ONE (17:52)
[2019-06-25 19:52] LABS: ALBUMIN 2.5 g/dL (3.2-5.5); BILIRUBIN,DIRECT 0.1 mg/dL (0.1-0.5); BILIRUBIN,TOTAL 0.5 mg/dL (0.2-1.0)
--- NOTE | 2019-06-25 20:50 | DISCHARGE SUMMARY ---
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 She continued to have right upper quadrant pain with ambulation. A repeat ultrasound was concerning for abscess in the gallbladder fossa. A CT of the abdomen and pelvis was performed which showed a 6.7 cm thick-walled rim-enhancing gas and fluid collection in the gallbladder fossa. General surgery evaluated the patient again and recommended transfer for interventional radiologist. Dr. Berrios spoke with Dr. Bijan Dumont of interventional radiology at [facility] who informed her that they will be able to drain the fluid collection on 06/26/19. I spoke with Dr. Lazo of the hospitalist service who graciously accepted the patient in transfer. I also spoke with Dr. Maurer of general surgery to discuss the patient's surgical history. Generalized weakness - improved. She has been working with physical therapy while here at [facility]. Her weakness has improved and she is ambulating with a walker. She was to be discharged home today but is now being transferred because of the abscess. Atrial fibrillation - stable. She has been rate controlled on atenolol. She is on Coumadin. She was given vitamin K 10 mg today at 6 PM as her INR was 2.7 this morning. She may require fresh frozen plasma prior to intervention tomorrow morning. Hypertension - stable. Blood pressure has been stable in the 140s systolic. She is only on her home atenolol and her nifedipine has been held as she has had episodes in the 110s systolic. Chronic pain - stable. This is secondary to osteoarthritis. Previously on fentanyl patch 12 mcg every 72 hours. She is currently on oxycodone 10 mg every 4 hours as needed. She also has a lidocaine patch to the right shoulder which she was on at home previously. 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 Dr. Berrios spoke with oncology and she has an appointment with Dr. Gavin on July 04. Her AFP is 1.6. CA 19-9 antigen is 8. Pathology revealed adenocarcinoma of the gallbladder with extension to the gallbladder wall to liver bed. Margins were not clear. History of breast cancer - stable. She has history of stage III left breast cancer and underwent radiation and lumpectomy. She has been on tamoxifen since 2012. History of pulmonary embolism - stable. Dopplers of the lower extremity this admission were negative for DVT. - HPI History of Present Illness: H&P per Dr. Berrios on 06/22/19: Fide elderly female who presented to our hospital with right upper quadrant pain for weeks. Gradually increasing in intensity after food. Her family brought her in when her abdominal pain became so severe after one meal. This was on June 16. In the emergency room she was identified as having acute cholecystitis. In the operating room she was identified as having a nearly ruptured gangrenous gallbladder with a 16mm common bile duct. This patient was on Coumadin for atrial fibrillation. Coumadin has been resumed. Postoperatively the only complication she had was postoperative pneumonia manifesting as right shoulder pain. Initially the thought was that she had referred pain from her gallbladder surgery, but chest x-ray confirmed infiltrate. pathology of the gallbladder specimen reveals adenocarcinoma/cholangiocarcinoma that did erode thru the GB muscle to the liver bed. After surgery she had weakness, hard for her to get out of bed and ambulate. Mostly this was due to her age. By postoperative day #5 she was felt medically stable to be transition to rehab. Physical therapy has been evaluating the patient and feels the patient could benefit from a few more days of strength, endurance exercise. She is now transition to swing bed status. Other than fatigue, weakness, she denies chest pain, cough, shortness of breath. Appetite is still diminished, but she is having bowel movements and tolerating her diet. Occasional urinary incontinent. Denies dysuria, urgency, frequency. - CONSULTS | PROCEDURES Consultations: General Surgery, PT Procedures: Abdominal ultrasound dated June 24. CT of the abdomen and pelvis with IV contrast dated June 25. - HOSPITAL COURSE Hospital Course: She is admitted to a swing bed on June 22 to continue physical therapy for her generalized weakness. She completed a course of vancomycin and zosyn for healthcare associated pneumonia. She continues work with physical therapy and has been ambulating well with a walker. Unfortunately, she continued to complain of right upper quadrant abdominal pain that was worse with movement. Ultrasound of the abdomen was performed which was concerning for an abscess or fluid collection in the gallbladder fossa. A CT of the abdomen and pelvis with IV contrast was obtained which showed a 6.7 cm fluid collection concerning for an abscess. General surgery evaluated the patient and the concern was for a biloma or abscess. They recommended transfer to facility with interventional radiology for drainage. - ALLERGIES Allergies/Adverse Reactions: Allergies Allergy/AdvReac Type Severity Reaction Status Date / Time Sulfa (Sulfonamide Allergy Intermediate FEVER/BODY Verified 06/15/19 21:42 Antibiotics) ACHE ibuprofen AdvReac Intermediate GI UPSET Verified 06/15/19 21:42 - MEDICATIONS Home Medications: Ambulatory Orders Medication Instructions Recorded Confirmed Acetaminophen [Tylenol Extra 500 mg PO BID 02/03/13 06/22/19 Strength] Atenolol [Tenormin] 12.5 mg PO DAILY 02/03/13 06/22/19 Calcium Carbonate/Vitamin D2 1 each PO DAILY 02/03/13 06/22/19 [Calcium with Vit D Tablet] Docusate Sodium 100Mg Capsule 100 mg PO DAILY 02/03/13 06/22/19 [Colace] Multivitamin [Multivitamins] 1 cap PO DAILY 02/03/13 06/22/19 Oxycodone HCl/Acetaminophen 0.5 - 1 each PO QID 02/03/13 06/22/19 [Endocet 10-325 mg Tablet] Potassium 99 mg PO DAILY 02/03/13 06/22/19 Senna [Senokot] 17.2 mg PO DAILY PRN 02/03/13 06/22/19 Tolterodine [Detrol LA] 4 mg PO DAILY 02/03/13 06/22/19 Warfarin Sodium [Coumadin] 0 mg PO DAILY 02/03/13 06/22/19 Tamoxifen Citrate 20 mg PO DAILY 06/13/13 06/22/19 Ascorbic Acid [Vitamin C] 500 mg PO DAILY 12/26/13 06/22/19 Magnesium 30 mg PO DAILY 12/26/13 06/22/19 Lidocaine Patch 5% [Lidoderm Patch] 1 patch TOP DAILY PM 04/27/17 06/22/19 Nifedipine [Nifedipine ER] 60 mg PO BID 06/16/19 06/22/19 Pantoprazole [Protonix] 40 mg PO DAILY 06/16/19 06/22/19 fentaNYL 12 MCG PATCH [Duragesic 12 mcg TOP Q72H 06/22/19 06/22/19 12mcg patch] - PHYSICAL EXAM AT DISCHARGE General Appearance: positive: No acute distress, Alert Eyes Bilateral: positive: Normal inspection Neck: positive: Nml inspection Respiratory: positive: No respiratory distress. negative: Wheezes, Rales, Rhonchi Cardiovascular: positive: Regular rate & rhythm, No murmur. negative: Systolic murmur, Diastolic murmur Abdomen: positive: Nml bowel sounds, Tenderness (Right upper quadrant.). negative: Guarding, Rebound Skin: positive: No rash, Warm, Dry Extremities: positive: Pedal edema (+1 pitting edema in bilateral lower extremities.) Neurologic/Psychiatric: positive: Oriented x3. negative: Disoriented to person, Disoriented to place, Disoriented to time, Facial droop, Slurred/abnml speech - LABS Result Diagrams: 06/25/19 04:35 06/25/19 04:35 - DIAGNOSTIC IMAGING Diagnostic Imaging Results: Final report reviewed - FOLLOW UP Follow Up: She has a follow-up appointment with Dr. Gavin on July 04 2019. - TIME SPENT Time Spent in Discharge (Minutes): 55"
[2019-06-25] MEDS ORDERED: LACTATED RINGERS 1,000 ML IV SCH (21:00)
[2019-06-25 21:08] VITALS: BP 150/75
[2019-06-25] MEDS: LIDOCAINE PATCH 5% TOP SCH (21:26)
== END 2019-06-25 22:40 | disposition short-term general hospital (02) | DRG 884 ==
LOC: MS3 14:44
PROVIDERS: ADMIT Specialist; ATTEND Internal Medicine
DX: R54 Age-related physical debility (principal); K65.1 Peritoneal abscess; J18.9 Pneumonia, unspecified organism; C23 Malignant neoplasm of gallbladder; C78.7 Secondary malignant neoplasm of liver and intrahepatic bile duct; I48.11 Longstanding persistent atrial fibrillation; I11.9 Hypertensive heart disease without heart failure; Y95 Nosocomial condition; M19.90 Unspecified osteoarthritis, unspecified site; M75.01 Adhesive capsulitis of right shoulder; G89.4 Chronic pain syndrome; F41.9 Anxiety disorder, unspecified; C50.912 Malignant neoplasm of unspecified site of left female breast; K21.9 Gastro-esophageal reflux disease without esophagitis; K44.9 Diaphragmatic hernia without obstruction or gangrene; Z66 Do not resuscitate; Z79.01 Long term (current) use of anticoagulants; Z79.899 Other long term (current) drug therapy; Z79.891 Long term (current) use of opiate analgesic; Z79.810 Long term (current) use of selective estrogen receptor modulators (SERMs); Z92.3 Personal history of irradiation; Z86.711 Personal history of pulmonary embolism; Z90.49 Acquired absence of other specified parts of digestive tract; Z86.718 Personal history of other venous thrombosis and embolism; Z17.0 Estrogen receptor positive status [ER+]; Z87.442 Personal history of urinary calculi
CPT/HCPCS: 36415; 71260; 74177; 76705; 80048; 80076; 80202; 82105; 82565; 85025; 85610; 85651; 86140; 86301

== ENCOUNTER 2019-06-25 22:44 | Outpatient (CLI) | payer MEDICARE, BC, MEDICAID | END 2019-06-25 22:45 | disposition short-term general hospital (02) | LOC: EMS 22:44 | PROVIDERS: ATTEND Surgery | DX: R10.11 Right upper quadrant pain (principal); R53.1 Weakness | CPT/HCPCS: A0425; A0428 ==

== ENCOUNTER 2019-07-01 05:08 | Outpatient (CLI) | payer MEDICARE, BC, MEDICAID | END 2019-07-01 05:09 | disposition critical access hospital (66) | LOC: EMS 05:08 | PROVIDERS: ATTEND Surgery | DX: M79.672 Pain in left foot (principal); M79.671 Pain in right foot | CPT/HCPCS: A0425; A0429 ==

== ENCOUNTER 2019-07-01 05:35 | Emergency (ER) | payer MEDICARE, BC, MEDICAID ==
[2019-07-01] MEDS ORDERED: FUROSEMIDE 20 MG TABLET PO STA (06:24)
--- NOTE | 2019-07-01 07:20 | ED Physician Documentation ---
History of Present Illness - Stated complaint Stated Complaint: FOOT PAIN AND SWELLING - Chief complaint Chief Complaint: Ext Problem - History obtained from History obtained from: Patient, Family - History of Present Illness Timing: How many weeks ago (2) - Additonal information Additional information: 88-year-old female has recently had her gallbladder out she had a problem with adenocarcinoma and a drain was placed into the gallbladder fossa at [facility]. The patient had received significant IV fluid throughout her hospitalization into hospitals and she was administered Lasix with some improvement in the swelling and she continues to have pain in her feet and swelling. This morning her pain is intolerable she is not even able to stand up at the side of the bed to urinate. She has been off of her oxycodone since last night. She had previously been using it every 4 hours. Review of Systems Constitutional: denies: Fever Nose: denies: Congestion Throat: denies: Sore throat Cardiac: denies: Chest pain / pressure Respiratory: denies: Dyspnea, Cough GI: reports: Abdominal Pain. denies: Vomiting : reports: Frequency, Incontinent. denies: Dysuria Musculoskeletal: reports: Extremity pain, Pain with weight bearing. denies: Neck pain, Back pain Neurologic: reports: Generalized weakness. denies: Focal weakness, Numbness PD PAST MEDICAL HISTORY - Past Medical History Past Medical History: Yes Cardiovascular: Hypertension, High cholesterol, Deep vein thrombosis, Pulmonary embolism, Atrial fibrillation Respiratory: None Neuro: None Endocrine/Autoimmune: None GI: GERD, GI bleed, Hiatal hernia, Cholelithiasis, Other MONEY EXAMINER: Breast cancer : Incontinence, Kidney stones HEENT: None Psych: None Musculoskeletal: Osteoarthritis Derm: None Other Past Medical History: BILIARY CANCER... - Past Surgical History Past Surgical History: Yes General: Cholecystectomy, Colonoscopy Ortho: Knee replacement /MONEY EXAMINER: Dilation and currettage, Mastectomy - Present Medications Home Medications: Ambulatory Orders Medication Instructions Recorded Confirmed Acetaminophen [Tylenol Extra 500 mg PO BID 02/03/13 06/22/19 Strength] Atenolol [Tenormin] 12.5 mg PO DAILY 02/03/13 06/22/19 Calcium Carbonate/Vitamin D2 1 each PO DAILY 02/03/13 06/22/19 [Calcium with Vit D Tablet] Docusate Sodium 100Mg Capsule 100 mg PO DAILY 02/03/13 06/22/19 [Colace] Multivitamin [Multivitamins] 1 cap PO DAILY 02/03/13 06/22/19 Oxycodone HCl/Acetaminophen 0.5 - 1 each PO QID 02/03/13 06/22/19 [Endocet 10-325 mg Tablet] Potassium 99 mg PO DAILY 02/03/13 06/22/19 Senna [Senokot] 17.2 mg PO DAILY PRN 02/03/13 06/22/19 Tolterodine [Detrol LA] 4 mg PO DAILY 02/03/13 06/22/19 Warfarin Sodium [Coumadin] 0 mg PO DAILY 02/03/13 06/22/19 Tamoxifen Citrate 20 mg PO DAILY 06/13/13 06/22/19 Ascorbic Acid [Vitamin C] 500 mg PO DAILY 12/26/13 06/22/19 Magnesium 30 mg PO DAILY 12/26/13 06/22/19 Lidocaine Patch 5% [Lidoderm Patch] 1 patch TOP DAILY PM 04/27/17 06/22/19 Nifedipine [Nifedipine ER] 60 mg PO BID 06/16/19 06/22/19 Pantoprazole [Protonix] 40 mg PO DAILY 06/16/19 06/22/19 fentaNYL 12 MCG PATCH [Duragesic 12 mcg TOP Q72H 06/22/19 06/22/19 12mcg patch] Furosemide [Lasix] 20 mg PO DAILY #10 tablet 07/01/19 Potassium Chloride 10 meq PO DAILY #10 tablet.er 07/01/19 - Allergies Allergies/Adverse Reactions: Allergies Allergy/AdvReac Type Severity Reaction Status Date / Time Sulfa (Sulfonamide Allergy Intermediate FEVER/BODY Verified 07/01/19 05:45 Antibiotics) ACHE ibuprofen AdvReac Intermediate GI UPSET Verified 07/01/19 05:45 - Social History Does the pt smoke?: No Smoking Status: Never smoker Does the pt drink ETOH?: No Does the pt have substance abuse?: No - Immunizations Immunizations are current?: Yes - POLST Patient has POLST: No POLST Status: Full Code PD ED PE NORMAL - Vitals Vital signs reviewed: Yes (hypertensive mild ) - General General: Alert and oriented X 3, No acute distress, Well developed/nourished - HEENT HEENT: Atraumatic, PERRL, EOMI - Respiratory Respiratory: No respiratory distress - Abdomen Abdomen: Soft, Other (There is a drain in the right upper quadrant that is draining serous fluid scant amount. ) - Derm Derm: Normal color, Warm and dry - Extremities Extremities: No deformity, Normal ROM s pain, Other (There is swelling to the feet and pitting edema to the ankles which is mild. The bottoms of the feet are tender and not inflamed. There is post inflamatory hyperpigmentation to the lower calves bilaterally ) - Neuro Neuro: Alert and oriented X 3, sebd teacher 2-12 intact, No motor deficit, No sensory deficit, Normal speech Eye Opening: Spontaneous Motor: Obeys Commands Verbal: Oriented GCS Score: 15 Results - Vitals Vitals: Vital Signs - 24 hr 07/01/19 07/01/19 07/01/19 05:37 05:52 06:08 Temperature 36.4 C L Heart Rate 92 87 86 Respiratory 16 16 17 Rate Blood Pressure 130/83 H 133/87 H O2 Saturation 95 94 96 07/01/19 06:56 Temperature Heart Rate 91 Respiratory 16 Rate Blood Pressure 131/73 H O2 Saturation 94 Oxygen O2 Source Room air Procedures - IVC sono (time) 0550 Bedside IVC sono: IVC measures (cm), IVC collapsed c insp (cm) (2.06), High CVP PD MEDICAL DECISION MAKING - ED course Complexity details: reviewed old records, reviewed results, re-evaluated patient, considered differential, d/w patient, d/w family ED course: 88-year-old female with a recent gallbladder procedure has persistent fluid to her lower extremities she was on some Lasix in the hospital they discontinued that she has some persistent swelling she has now stopped taking her pain medication and has intolerable pain. I have encouraged the patient to use her pain medication to get up to use the restroom we did check her inferior vena cava she does have extra fluid on board and she is administered Lasix here in the emergency department. I have encouraged the patient to take Lasix for the next 4 days and use her pain medication as needed. Departure - Departure Disposition: 01 Home, Self Care Clinical Impression: Pedal edema Condition: Stable Instructions: ED Edema Legs Bilateral Follow-Up: Daryl Rodriguez MD [Credentialed Staff Provider] - Prescriptions: Furosemide [Lasix] 20 mg PO DAILY #10 tablet Potassium Chloride 10 meq PO DAILY #10 tablet.er Comments: Take the Lasix and potassium for the next 4 days. Take your pain medication as needed for the pain.
[2019-07-01 07:56] VITALS: BP 142/91
== END 2019-07-01 08:12 | disposition home or self-care (01) ==
LOC: EDUNIT# → ED 05:35
DX: R60.0 Localized edema (principal); I10 Essential (primary) hypertension
CPT/HCPCS: 99283; 99284; A9270